=== PATIENT | female | born 1975 | race Caucasian/White ===

== ENCOUNTER 2018-08-29 18:27 | Emergency (ER) | payer MEDICARE, MEDICAID ==
[2018-08-29 18:44] VITALS: BP 136/83
[2018-08-29] MEDS ORDERED: HYDROmorphone 0.5 MG/0.5 ML Syringe IVPUSH ONE (19:04)
--- NOTE | 2018-08-29 19:09 | EDM.PDOC ---
ED HPI GENERAL MEDICAL PROBLEM - General Chief Complaint: ENT Problem Stated Complaint: SORE THROAT Time Seen by Provider: 08/29/18 18:50 Source of Information: Reports: Patient, Family History Limitations: Reports: No Limitations - History of Present Illness INITIAL COMMENTS - FREE TEXT/NARRATIVE: 42-year-old female has had malaise and sore throat for the past 5 days. Over the past 48 hours she is running low-grade fevers and has had increased pain on the right side with difficulty swallowing. No other cold symptoms, no nausea or vomiting. She is 10 weeks' gestation. She was evaluated at the clinic, rapid strep was positive, she was then sent over the emergency room to evaluate for possible peritonsillar abscess. 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 Denies: Weakness HEENT: Reports: Throat Pain. Denies: Ear Pain Respiratory: Denies: Shortness of Breath, Cough Cardiovascular: Denies: Chest Pain GI/Abdominal: Denies: Abdominal Pain, Nausea, Vomiting : Reports: No Symptoms Skin: Reports: No Symptoms Neurological: Denies: Headache Free Text/Narrative/Comment: 10 weeks gestation ED EXAM, ENT - Physical Exam Exam: See Below Exam Limited By: No Limitations General Appearance: Alert, No Apparent Distress (Looks uncomfortable but not distressed) Eye Exam: Bilateral Eye: Normal Inspection Mouth/Throat: Pharyngeal Erythema, Tonsillar Erythema, Tonsillar Exudates, Uvular Deviation (Slight deviation to the left due to peritonsillar swelling on the right side.) Head: Atraumatic Neck: No: Lymphadenopathy (R), Lymphadenopathy (L) Respiratory/Chest: No Respiratory Distress Skin: Warm, Dry Course - Vital Signs Last Recorded V/S: Last Vital Signs Temp 97.6 F 08/29/18 18:43 Pulse 99 08/29/18 18:43 Resp 16 08/29/18 18:43 BP 136/83 08/29/18 18:43 Pulse Ox 100 08/29/18 18:43 - Orders/Labs/Meds Labs: Laboratory Tests 08/29/18 08/29/18 Range/Units 19:04 19:04 WBC 15.4 H (4.5-11.0) K/uL RBC 4.64 (3.30-5.50) M/uL Hgb 13.1 D (12.0-15.0) g/dL Hct 40.9 (36.0-48.0) % MCV 88 (80-98) fL MCH 28 (27-31) pg MCHC 32 (32-36) % Plt Count 304 (150-400) K/uL Neut % (Auto) 81 H (36-66) % Lymph % (Auto) 9 L (24-44) % Yancey % (Auto) 10 H (2-6) % Eos % (Auto) 1 L (2-4) % Baso % (Auto) 0 (0-1) % Sodium 139 L (140-148) mmol/L Potassium 3.1 L (3.6-5.2) mmol/L Chloride 104 (100-108) mmol/L Carbon Dioxide 24 (21-32) mmol/L Anion Gap 14.1 H (5.0-14.0) mmol/L BUN 12 (7-18) mg/dL Creatinine 0.8 (0.6-1.0) mg/dL Est Cr Clr Drug Dosing 86.63 mL/min Estimated GFR (MDRD) > 60 (>60) Glucose 112 H (74-106) mg/dL Calcium 9.3 (8.5-10.1) mg/dL Meds: Medications Discontinued Medications Generic Name Dose Route Start Last Admin Trade Name Freq PRN Reason Stop Dose Admin Hydromorphone HCl 0.5 mg 08/29/18 19:04 08/29/18 19:35 Dilaudid IVPUSH 08/29/18 19:05 0.5 mg ONETIME ONE Administration Sodium Chloride 1,000 mls @ 1,000 mls/hr 08/29/18 19:15 08/29/18 19:35 Normal Saline IV 1,000 mls/hr ASDIRECTED OMKAR Administration Clindamycin Phosphate 600 mg/ 54 mls @ 100 mls/hr 08/29/18 19:53 08/29/18 20: 10 Sodium Chloride IV 08/29/18 20:25 100 mls/hr ONETIME ONE Administration Sodium Chloride 80 mls @ 3 mls/sec 08/29/18 20:00 Normal Saline IV ASDIRECTED OMKAR Iopamidol 100 ml 08/29/18 20:00 Isovue-300 (61%) IV . DIRECTED OMKAR Methylprednisolone Sodium Succinate 125 mg 08/29/18 20:27 08/29/18 20:33 Solu-Medrol IVPUSH 08/29/18 20:28 125 mg ONETIME ONE Administration Sodium Chloride 10 ml 08/29/18 19:59 Saline Flush FLUSH ASDIRECTED PRN Keep Vein Open - Re-Assessments/Exams Free Text/Narrative Re-Assessment/Exam: 08/29/18 19:08 An IV was started, patient will be bolused with 1 L of normal saline. She'll be given 0.5 mg of IV Dilaudid, BMP and CBC obtained followed by a CT scan with IV contrast of the cervical soft tissue. 08/29/18 19:55 White count returned 15,000, creatinine normal. 600 mg of IV clindamycin was ordered as well as a CT of soft tissue of the neck with IV contrast. 08/29/18 20:26 After discussion with radiology, there is no save way to shield from the CT scan and was advised not to CT if possible. She'll be given 125 mg of IV Solu-Medrol, followed by the clindamycin and then placed on oral clindamycin. 08/29/18 20:59 Patient will continue on clindamycin orally 300 mg 3 times a day, and recheck with Dr. Harkins on Monday. Departure - Departure Time of Disposition: 21:25 Disposition: Home, Self-Care 01 Condition: Good Clinical Impression: Strep pharyngitis - Discharge Information Instructions: Strep Throat, [id number] Referrals: Susannah Mendoza PA [Primary Care Provider] - Forms: ED Department Discharge Care Plan Goals: Take 2 pills of antibiotic 3 times a day for at least 7 days and up to 10 days if needed. Continue with ibuprofen as needed and stay hydrated. Consider rechecking with Dr. Harkins on Monday at the clinic follow-up.
[2018-08-29] MEDS ORDERED: Sodium Chloride 0.9% 1,000 ML IV SCH (19:15)
[2018-08-29] MEDS ORDERED: Sodium Chloride 0.9% 10 ML Syringe FLUSH PRN (19:59)
[2018-08-29] MEDS ORDERED: Sodium Chloride 0.9% 80 ML IV SCH (20:00)
[2018-08-29] MEDS ORDERED: Iopamidol 612 MG/ML 100 ML Bottle IV SCH (20:00)
[2018-08-29] MEDS ORDERED: methylPREDNISolone Sodium Succinate 125 MG/2 ML SDV IVPUSH ONE (20:27)
== END 2018-08-29 21:27 | disposition home or self-care (01) ==
LOC: JP.ED 18:27
DX: J02.0 Streptococcal pharyngitis (principal)
CPT/HCPCS: 36415; 80048; 85025; 96361; 96365; 96375; 99283; J1170; J2930; J3490; J7030; J7050

== ENCOUNTER 2021-03-18 21:25 | Inpatient (IN) | payer OTHER, MEDICARE, MEDICAID ==
[2021-03-18] MEDS ORDERED: Ondansetron 4 MG/2 ML SDV IVPUSH ONE (21:36)
[2021-03-18] MEDS ORDERED: Sodium Chloride 0.9% 10 ML Syringe FLUSH PRN ×2 (21:36→23:49)
[2021-03-18] MEDS ORDERED: Sodium Chloride 0.9% 1,000 ML IV SCH (21:45)
[2021-03-18] MEDS ORDERED: Enoxaparin 40 MG/0.4 ML Syringe SUBCUT SCH (23:45)
[2021-03-18] MEDS ORDERED: Iopamidol 755 Mg/ML 100 ML Bottle IV SCH (23:45)
[2021-03-18] MEDS ORDERED: Sodium Chloride 0.9% 100 ML IV SCH (23:45)
[2021-03-18] MEDS ORDERED: oxyCODONE 5 MG Tab PO PRN (23:49)
[2021-03-18] MEDS ORDERED: LORazepam 2 MG/ML SDV IV PRN (23:49)
[2021-03-18] MEDS ORDERED: Morphine 2 MG/ML SYRINGE IVPUSH PRN (23:49)
[2021-03-18] MEDS ORDERED: Sodium Chloride 0.9% 10 ML Syringe FLUSH ONE (23:49)
[2021-03-18] MEDS ORDERED: Docusate Sodium 100 MG Cap PO PRN (23:49)
[2021-03-18] MEDS ORDERED: REMDESIVIR 200 MG in Sodium Chloride 0.9% 250 ML IV ONE (23:59)
[2021-03-19] MEDS ORDERED: Dexamethasone 2 MG Tab PO SCH
[2021-03-19] MEDS ORDERED: Albuterol 8 GM Inhaler INH PRN (00:04)
--- NOTE | 2021-03-19 00:08 | PCM.HP.2 ---
H&P History of Present Illness - General Date of Service: 03/18/21 Admit Problem/Dx: Admission Diagnosis/Problem Admission Diagnosis/Problem Pneumonia due to infectious organism Source of Information: Patient, Provider, RN History Limitations: Reports: No Limitations - History of Present Illness Initial Comments - Free Text/Narative: chief complaint: shortness of breath - not feeling well This is a 45 year old female present to the ER with , reports has been sick for 10 days- body aches, fever, chills, cough, loss of appetite, nausea, vomiting, diarrhea. she was seen in [facility] ER on Mar 16 for same symptoms- was not tested for Covid- discharge to home with John. She came to ER today because her was monitoring her oxygen level and it was noted to be 80%. She has weakness, cough and shortness of breath. and Mrs. Parisi came to [facility] for re-evaluation of worsening symptoms. vitals signs upon arrival p 93 rr 14 shallow B/P 93/52 02 sat 88% room air. She was given one liter of normal saline for hypotension which improved B/P 105/59. she reports still weak and shortness of breath She had labs- which shows positive Covid-19 , dimer 800.94, wbc 2.9, hgb 13.1, hct 38.7, Na+ 135, K+3.7, cl 96, co2 13.7, bun 21, cr. 1.1, gfr 54, glucose 101, Lactic acid 3.4, Ca+ 8.1, Ferritin 549, Total bili 0.4, ast 43, alt 75, alk phos 89, LDH 181, crp 43.61, procalcitonin 1.13 total protein 6.4, albumin 2.4, globulin 0.6 chest x-rays with bilateral patchy infiltrates with left lung with lower half of lung involved. CT angio-chest pending at time of admission not vaccination for Covid-19 Onset of Symptoms: Reports: Gradual Duration of Symptoms: Reports: Day(s): (10 days with Covid-19 infection), Getting Worse Location: Reports: Generalized Quality: Reports: Ache Severity: Severe Improves with: Reports: None Worsens with: Reports: Movement Context: Reports: Sick Contact (one daughter with similar symptoms- but has recovered.), Other (Covid-19 infection) Associated Symptoms: Reports: Fever/Chills, Loss of Appetite, Malaise, Shortness of Breath, Weakness Generalized Pain Score (Numeric/FACES): 2 - Related Data Allergies/Adverse Reactions: Allergies Allergy/AdvReac Type Severity Reaction Status Date / Time No Known Allergies Allergy Verified 03/18/21 22:41 Home Medications: Home Meds Ondansetron [Zofran ODT] 4 mg PO Q6H PRN 03/18/21 [History] Past Medical History HEENT History: Reports: Impaired Vision, Other (See Below) 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 home is in [place], [place].) H&P Review of Systems - Review of Systems: Review Of Systems: See Below General: Reports: Fever, Chills, Malaise, Weakness, Fatigue, Diaphoresis, Decreased Appetite, Weight Loss HEENT: Reports: Other (legal blind) Pulmonary: Reports: Shortness of Breath, Pleuritic Chest Pain, Cough Cardiovascular: Reports: Dyspnea on Exertion Gastrointestinal: Reports: Diarrhea, Decreased Appetite, Nausea, Vomiting Genitourinary: Reports: No Symptoms Musculoskeletal: Reports: Muscle Pain Skin: Reports: Pallor, Rash (face and upper body) Psychiatric: Reports: No Symptoms Neurological: Reports: Weakness Hematologic/Lymphatic: Reports: No Symptoms Immunologic: Reports: No Symptoms Exam - Exam Exam: See Below - Vital Signs Vital Signs: Last Vital Signs Temp 97.6 F 03/18/21 22:00 Pulse 98 03/19/21 00:05 Resp 16 03/19/21 00:05 BP 105/59 L 03/19/21 00:05 Pulse Ox 92 L 03/19/21 00:05 Weight: 150 lb - Exam Quality Assessment: Supplemental Oxygen, DVT Prophylaxis General: Alert, Oriented, Cooperative, Other (neat and well groomed. very pale, weakness and fatigue noted. ) HEENT: Nares Patent Neck: Supple, Trachea Midline, Full Range of Motion Lungs: Clear to Auscultation, Decreased Breath Sounds (shallow breathing noted) Cardiovascular: Regular Rate, Regular Rhythm, Normal S1, Normal S2 GI/Abdominal Exam: Normal Bowel Sounds, Soft, Non-Tender (Female) Exam: Deferred Rectal (Female) Exam: Deferred Back Exam: Normal Inspection Extremities: Normal Inspection, Normal Range of Motion, Non-Tender, Normal Capillary Refill, Pallor Skin: Warm, Dry, Rash (blotchy red/pink rash noted to face, neck and upper chest) Neurological: Reflexes Equal Bilateral, Strength Equal Bilateral Neuro Extensive - Mental Status: Inattentive Psychiatric: Alert, Other (appears very tired. but answers questions.) - Patient Data Lab Results Last 24 hrs: Laboratory Results - last 24 hr 03/18/21 03/18/21 03/18/21 Range/Units 21:51 21:51 21:51 WBC 2.9 L (4.5-11.0) K/uL RBC 4.61 (3.30-5.50) M/uL Hgb 13.1 (12.0-15.0) g/dL Hct 38.7 (36.0-48.0) % MCV 84 (80-98) fL MCH 28 (27-31) pg MCHC 34 (32-36) % Plt Count 132 L (150-400) K/uL Add Manual Diff Yes Neutrophils % (Manual) 80 H (36-66) % Band Neutrophils % 10 (5-11) % Lymphocytes % (Manual) 9 L (24-44) % Monocytes % (Manual) 1 L (2-6) % D-Dimer, Quantitative 800.94 H (0.0-500.0) ng/mL Sodium 135 L (140-148) mmol/L Potassium 3.7 (3.6-5.2) mmol/L Chloride 96 L (100-108) mmol/L Carbon Dioxide 29 (21-32) mmol/L Anion Gap 13.7 (5.0-14.0) mmol/L BUN 21 H D (7-18) mg/dL Creatinine 1.1 H (0.6-1.0) mg/dL Est Cr Clr Drug Dosing 61.10 mL/min Estimated GFR (MDRD) 54 L (>60) Glucose 101 (74-106) mg/dL Lactic Acid (0.4-2.0) mmol/L Calcium 8.1 L (8.5-10.1) mg/dL Ferritin 549 H (8-388) ng/ml Total Bilirubin 0.4 (0.2-1.0) mg/dL AST 40 H (15-37) U/L ALT 72 (12-78) U/L Alkaline Phosphatase 89 (46-116) U/L Lactate Dehydrogenase 181 (82-234) U/L C-Reactive Protein 43.61 H (0.0-0.3) mg/dL Total Protein 6.4 (6.4-8.2) g/dL Albumin 2.4 L (3.4-5.0) g/dL Globulin 4.0 H (2.3-3.5) g/dL Albumin/Globulin Ratio 0.6 L (1.2-2.2) SARS-CoV-2 RNA (CIARA) (NEGATIVE) 03/18/21 03/18/21 Range/Units 21:51 22:05 WBC (4.5-11.0) K/uL RBC (3.30-5.50) M/uL Hgb (12.0-15.0) g/dL Hct (36.0-48.0) % MCV (80-98) fL MCH (27-31) pg MCHC (32-36) % Plt Count (150-400) K/uL Add Manual Diff Neutrophils % (Manual) (36-66) % Band Neutrophils % (5-11) % Lymphocytes % (Manual) (24-44) % Monocytes % (Manual) (2-6) % D-Dimer, Quantitative (0.0-500.0) ng/mL Sodium (140-148) mmol/L Potassium (3.6-5.2) mmol/L Chloride (100-108) mmol/L Carbon Dioxide (21-32) mmol/L Anion Gap (5.0-14.0) mmol/L BUN (7-18) mg/dL Creatinine (0.6-1.0) mg/dL Est Cr Clr Drug Dosing mL/min Estimated GFR (MDRD) (>60) Glucose (74-106) mg/dL Lactic Acid 3.4 H (0.4-2.0) mmol/L Calcium (8.5-10.1) mg/dL Ferritin (8-388) ng/ml Total Bilirubin (0.2-1.0) mg/dL AST (15-37) U/L ALT (12-78) U/L Alkaline Phosphatase (46-116) U/L Lactate Dehydrogenase (82-234) U/L C-Reactive Protein (0.0-0.3) mg/dL Total Protein (6.4-8.2) g/dL Albumin (3.4-5.0) g/dL Globulin (2.3-3.5) g/dL Albumin/Globulin Ratio (1.2-2.2) SARS-CoV-2 RNA (CIARA) Positive H (NEGATIVE) Result Diagrams: 03/18/21 21:51 03/18/21 21:51 Sepsis Event Note - Evaluation Sepsis Screening Result: No Definite Risk - Focused Exam Vital Signs: Vital Signs Temp Pulse Resp BP Pulse Ox 03/19/21 00:05 98 16 105/59 L 92 L 03/18/21 23:58 81 14 93 L 03/18/21 23:35 93 88 L 03/18/21 23:04 91 16 93/61 91 L 03/18/21 22:21 93 14 93/52 L 95 03/18/21 22:00 97.6 F 89 16 85/50 L 93 L - Problem List (1) Pneumonia due to 2019 novel coronavirus SNOMED Code(s): 134433946499187774 ICD Code: U07.1 - COVID-19; J12.82 - PNEUMONIA DUE TO CORONAVIRUS DISEASE 2019 Status: Acute Priority: High Current Visit: Yes (2) Legal blindness SNOMED Code(s): 84892443 ICD Code: H54.8 - LEGAL BLINDNESS, DEFINED IN [place] Status: Acute Priority: High Current Visit: Yes Problem List Initiated/Reviewed/Updated: Yes Orders Last 24hrs: Active Orders 24 hr Category Date Time Status Patient Status Manage Transfer [TRANSFER] Routine ADT 03/18/21 23:43 Active Bedrest Bathroom Privileges [RC] ASDIRECTED Care 03/18/21 23:49 Active Cardiac Monitoring [RC] CONTINUOUS Care 03/18/21 23:50 Active Intake and Output [RC] QSHIFT Care 03/18/21 23:50 Active Notify Provider Vital Signs [RC] ASDIRECTED Care 03/18/21 23:51 Active Nurse Communication: Isolation [RC] ASDIRECTED Care 03/19/21 00:01 Active Oxygen Therapy [RC] PRN Care 03/18/21 23:50 Active Pulse Oximetry [RC] CONTINUOUS Care 03/18/21 23:51 Active RT Post Treatment Assessment [RC] Click to Edit Care 03/19/21 00:05 Active VTE/DVT Education [RC] Per Unit Routine Care 03/18/21 23:50 Active Vital Signs [RC] Q4H Care 03/18/21 23:50 Active Regular Diet [DIET] Diet 03/18/21 Breakfast Active Ang Chest [CT] Stat Exams 03/18/21 23:41 Ordered Chest 1V Frontal [CR] Stat Exams 03/18/21 21:36 Taken BASIC METABOLIC PANEL,BMP [CHEM] AM Lab 03/19/21 05:11 Ordered C-REACTIVE PROTEIN [CHEM] AM Lab 03/19/21 05:11 Ordered CBC WITH AUTO DIFF [HEME] AM Lab 03/19/21 05:11 Ordered CULTURE BLOOD [BC] Urgent Lab 03/18/21 23:56 Ordered CULTURE BLOOD [BC] Urgent Lab 03/18/21 23:56 Ordered HEPATIC FUNCTION PANEL,HFP [CHEM] DAILY Lab 03/20/21 00:15 Ordered HEPATIC FUNCTION PANEL,HFP [CHEM] DAILY Lab 03/21/21 00:15 Ordered HEPATIC FUNCTION PANEL,HFP [CHEM] DAILY Lab 03/22/21 00:15 Ordered HEPATIC FUNCTION PANEL,HFP [CHEM] DAILY Lab 03/23/21 00:15 Ordered HEPATIC FUNCTION PANEL,HFP [CHEM] Stat Lab 03/19/21 00:01 Ordered INR,PT,PROTHROMBIN TIME [COAG] AM Lab 03/19/21 05:11 Ordered LACTIC ACID [CHEM] AM Lab 03/19/21 05:11 Ordered MAGNESIUM [CHEM] AM Lab 03/19/21 05:11 Ordered PROCALCITONIN [CHEM] Stat Lab 03/18/21 21:48 Stop Req PROCALCITONIN [CHEM] Stat Lab 03/19/21 05:10 Ordered UA W/MICROSCOPIC [URIN] Urgent Lab 03/18/21 23:49 Ordered Acetaminophen [TylenoL] Med 03/18/21 23:49 Active 650 mg PO Q4H PRN Albuterol [Ventolin HFA] Med 03/19/21 00:04 Ordered 2 gm INH Q2H PRN Albuterol/Ipratropium [Combivent Respimat] Med 03/19/21 06:00 Ordered 1 gm INH QID Docusate Sodium [Colace] Med 03/18/21 23:49 Active 100 mg PO BID PRN Enoxaparin [Lovenox] Med 03/18/21 23:45 Active 40 mg SUBCUT Q12H Iopamidol [Isovue-370 (76%)] Med 03/18/21 23:45 Active 100 ml IV . DIRECTED LORazepam [Ativan] Med 03/18/21 23:49 Active 1 mg IV Q6H PRN Morphine Med 03/18/21 23:49 Ordered 2 mg IVPUSH Q2H PRN Ondansetron [Zofran ODT] Med 03/18/21 23:49 Ordered 4 mg PO Q6H PRN Remdesivir 200 mg Med 03/18/21 23:59 Ordered Sodium Chloride 0.9% [Normal Saline] 250 ml IV ONETIME Sodium Chloride 0.9% [Normal Saline] 1,000 ml Med 03/18/21 21:45 Active IV ASDIRECTED Sodium Chloride 0.9% [Normal Saline] 100 ml Med 03/18/21 23:45 Active IV ASDIRECTED Sodium Chloride 0.9% [Saline Flush] Med 03/18/21 21:36 Active 10 ml FLUSH ASDIRECTED PRN Sodium Chloride 0.9% [Saline Flush] Med 03/18/21 23:49 Ordered 10 ml FLUSH ASDIRECTED PRN dexAMETHasone Med 03/19/21 00:00 Active 6 mg PO DAILY oxyCODONE Med 03/18/21 23:49 Ordered 5 mg PO Q4H PRN Blood Culture x2 Reflex Set [OM.PC] Stat Oth 03/18/21 23:55 Ordered Isolation [COMM] Routine Oth 03/19/21 00:01 Ordered Saline Lock Insert [OM.PC] Routine Oth 03/18/21 21:36 Ordered Saline Lock Insert [OM.PC] Routine Oth 03/18/21 23:49 Ordered Resuscitation Status Routine Resus Stat 03/18/21 23:49 Ordered Medication Orders Acetaminophen (Acetaminophen 325 Mg Tab) 650 mg PO Q4H PRN PRN Reason: Pain (Mild 1-3)/fever Albuterol (Albuterol 8 Gm Inhaler) 2 gm INH Q2H PRN PRN Reason: Cough Albuterol/Ipratropium (Albuterol/Ipratropium 4 Gm Inhalation [place]) 1 gm INH QID [facility] Dexamethasone (Dexamethasone 2 Mg Tab) 6 mg PO DAILY [facility] Docusate Sodium (Docusate Sodium 100 Mg Cap) 100 mg PO BID PRN PRN Reason: Constipation Enoxaparin Sodium (Enoxaparin 40 Mg/0.4 Ml Syringe) 40 mg SUBCUT Q12H [facility] Sodium Chloride (Normal Saline) 1,000 mls @ 999 mls/hr IV ASDIRECTED [facility] Last Admin: 03/18/21 22:15 Dose: 999 mls/hr Documented by: LAYNE Sodium Chloride (Normal Saline) 100 mls @ 3 mls/sec IV ASDIRECTED [facility] Remdesivir 200 mg/ Sodium (Chloride) 250 mls @ 250 mls/hr IV ONETIME ONE Stop: 03/19/21 00:00 Iopamidol (Iopamidol 755 Mg/Ml 100 Ml Bottle) 100 ml IV . DIRECTED [facility] Lorazepam (Lorazepam 2 Mg/Ml Sdv) 1 mg IV Q6H PRN PRN Reason: Nausea/Vomiting Morphine Sulfate (Morphine 2 Mg/Ml Syringe) 2 mg IVPUSH Q2H PRN PRN Reason: Pain (severe 7-10) Ondansetron HCl (Ondansetron 4 Mg Tab.Dis) 4 mg PO Q6H PRN PRN Reason: Nausea able to take PO Oxycodone HCl (Oxycodone 5 Mg Tab) 5 mg PO Q4H PRN PRN Reason: Pain (moderate 4-6) Sodium Chloride (Sodium Chloride 0.9% 10 Ml Syringe) 10 ml FLUSH ASDIRECTED PRN PRN Reason: Keep Vein Open Last Admin: 03/18/21 22:12 Dose: 10 ml Documented by: LAYNE Sodium Chloride (Sodium Chloride 0.9% 10 Ml Syringe) 10 ml FLUSH ASDIRECTED PRN PRN Reason: Keep Vein Open Assessment/Plan Comment:: ASSESSMENT AND PLAN : pneumonia due to Covid 19 This is a 45 year old female present to the ER with , reports has been sick for 10 days- body aches, fever, chills, cough, loss of appetite, nausea, vomiting, diarrhea. she was seen in [facility] ER on Mar 16 for same symptoms- was not tested for Covid- discharge to home with John. She has no chronic health conditions. has 11 children ages 2 yrs to 21 yrs., one daughter is recovering from similar symptoms. She came to ER today because her was monitoring her oxygen level at home and it was noted to be 80%. She has weakness, cough and shortness of breath. vitals signs upon arrival p 93 rr 14 shallow B/P 93/52 02 sat 88% room air. She was given one liter of normal saline for hypotension which improved B/P 105/59. she reports still weak and shortness of breath She had labs- which shows positive Covid-19 , dimer 800.94, wbc 2.9, hgb 13.1, hct 38.7, Na+ 135, K+3.7, cl 96, co2 13.7, bun 21, cr. 1.1, gfr 54, glucose 101, Lactic acid 3.4, Ca+ 8.1, Ferritin 549, Total bili 0.4, ast 43, alt 75, alk phos 89, LDH 181, crp 43.61, procalcitonin 1.13 total protein 6.4, albumin 2.4, globulin 0.6 chest x-rays with bilateral patchy infiltrates with left lung with lower half of lung involved. CT angio-chest pending at time of admission PLAN- to admit to hospital for further care and treatment. COVID-19 pneumonia-complicated by hypoxia. She has not been vaccinated. Tested positive on March 18 at [place] but has been sick for 10 days. Elevation of D-dimer 800.94, CT chest angio pending at time of admission -IV Remdesivir 200 mg - start today -PO Dexamethasone 6 mg daily - start today -Supplement oxygen as needed -Symptomatic management of cough -albuterol inhaler 2 puffs every 2 hours as needed for cough -albuterol - atrovent inhaler 1 puff 4 times a day scheduled -Goal of negative fluid balance each day -Isolation precautions -am labs CBC, BMP, LACTIC ACID, PROCALCITONIN, CRP, UA Legal Blindness -orient to room -at risk for falls, tripping or slips -call light Maintenance issues - -DVT prophylaxis-enoxaparin 40 mg subcut bid -GI prophylaxis-not indicated -Nutrition-regular -Cardona catheter-not indicated CODE STATUS: FULL Admission status: Admit to 2ND Floor Med-Surg Admission justification. This patient will be admitted for inpatient services and is medically appropriate meeting medical necessity for inpatient admission as outlined in my documentation. I reasonably expect the patient will require inpatient services that span. Time over 2 midnights. I reasonably expect this patient to be discharged or transferred within 96 hours after admission to the critical [facility]. Disposition: home with family Primary care provider: Dr. Garcia, [facility] Hospitalist: Dr. Goel - Mortality Measure Prognosis:: Good - Mortality Measure Prognosis:: Good
[2021-03-19] MEDS: Ondansetron 4 MG Tab.DIS PO PRN ×2 (02:06→08:10)
--- NOTE | 2021-03-19 02:44 | EDM.PDOC ---
ED HPI GENERAL MEDICAL PROBLEM - General Chief Complaint: Respiratory Problem Stated Complaint: FEVER, LOW O2, SOB Time Seen by Provider: 03/18/21 21:34 Source of Information: Reports: Patient, Provider, RN History Limitations: Reports: No Limitations - History of Present Illness INITIAL COMMENTS - FREE TEXT/NARRATIVE: Is a 45-year-old female presenting to the ED for evaluation of increasing shortness of breath, restlessness, headache, body aches, diminished appetite, and generalized weakness. The patient and her daughter were diagnosed 10 days ago with COVID-19. The patient had been doing fairly well until 3 days ago when she took a turn for the worst and since then has been steadily declining with increasing difficulty breathing and hypoxia. The patient presents with fever and hypotension with a systolic pressure of 85. She is rolling around on the cot in obvious discomfort. The patient has not been vaccinated. Onset: Gradual Duration: Day(s): (10 days with Covid-19 infection), Getting Worse Location: Reports: Generalized Quality: Reports: Ache Severity: Severe Improves with: Reports: None Worsens with: Reports: Movement Associated Symptoms: Reports: Fever/Chills, Loss of Appetite, Malaise, Shortness of Breath, Weakness Generalized Pain Score (Numeric/FACES): 2 - Related Data Allergies Allergy/AdvReac Type Severity Reaction Status Date / Time No Known Allergies Allergy Verified 03/18/21 22:41 Home Meds: Home Meds Ondansetron [Zofran ODT] 4 mg PO Q6H PRN 03/18/21 [History] Past Medical History HEENT History: Reports: Impaired Vision, Other (See Below) Other HEENT History: Retinitis pigmintosa (RP) [employer] History: Reports: Social & Family History - Tobacco Use Tobacco Use Status *Q: Never Tobacco User Second Hand Smoke Exposure: No - Caffeine Use Caffeine Use: Reports: Coffee - Recreational Drug Use Recreational Drug Use: No - Living Situation & Occupation Living situation: Reports: , with Family (lives with Vikram, 11 children ages 2 years to 21 years. home is in [place], [place].) ED ROS GENERAL - Review of Systems Review Of Systems: See Below Constitutional: Reports: Fever, Chills, Malaise, Weakness, Fatigue, Decreased Appetite HEENT: Reports: Rhinitis, Sinus Problem Respiratory: Reports: Shortness of Breath, Cough Cardiovascular: Reports: No Symptoms Endocrine: Reports: No Symptoms GI/Abdominal: Reports: Abdominal Pain, Anorexia, Decreased Appetite, Nausea : Reports: No Symptoms Musculoskeletal: Reports: Muscle Pain Skin: Reports: Rash Neurological: Reports: Dizziness, Headache Psychiatric: Reports: No Symptoms Hematologic/Lymphatic: Reports: No Symptoms Immunologic: Reports: No Symptoms ED EXAM, GENERAL - Physical Exam Exam: See Below Exam Limited By: No Limitations General Appearance: Alert, Anxious, Moderate Distress Eye Exam: Bilateral Eye: EOMI, PERRL Nose: Nasal Drainage, Clear Rhinorrhea Throat/Mouth: Normal Inspection, Normal Oropharynx, Normal Voice, No Airway Compromise Head: Atraumatic, Normocephalic Neck: Normal Inspection, Supple, Non-Tender, Full Range of Motion. No: Lymphadenopathy (R), Lymphadenopathy (L) Respiratory/Chest: Decreased Breath Sounds (Minutes breath sounds on the left), Other (Mild tachypnea) Cardiovascular: Normal Peripheral Pulses, Regular Rate, Rhythm, No Murmur Peripheral Pulses: 2+: Radial (L), Radial (R) GI/Abdominal: Normal Bowel Sounds, Soft, Non-Tender Back Exam: Normal Inspection Extremities: Normal Inspection, Normal Range of Motion, Non-Tender, Normal Capillary Refill, Pallor Neurological: Alert, Oriented, Normal Cognition, No Motor/Sensory Deficits Psychiatric: Anxious Skin Exam: Rash (Fine macular rash) Lymphatic: No Adenopathy Course - Vital Signs Last Recorded V/S: Last Vital Signs Temp 36.4 C 03/18/21 22:00 Pulse 95 03/19/21 02:06 Resp 20 03/19/21 02:06 BP 95/59 L 03/19/21 02:06 Pulse Ox 91 L 03/19/21 02:06 - Orders/Labs/Meds Orders: Active Orders 24 hr Category Date Time Status Ang Chest [CT] Stat Exams 03/18/21 23:41 Taken Chest 1V Frontal [CR] Stat Exams 03/18/21 21:36 Taken Sodium Chloride 0.9% [Normal Saline] 1,000 ml Med 03/18/21 21:45 Active IV ASDIRECTED Sodium Chloride 0.9% [Saline Flush] Med 03/18/21 21:36 Active 10 ml FLUSH ASDIRECTED PRN Saline Lock Insert [OM.PC] Routine Oth 03/18/21 21:36 Ordered Medication Orders Acetaminophen (Acetaminophen 325 Mg Tab) 650 mg PO Q4H PRN PRN Reason: Pain (Mild 1-3)/fever Albuterol (Albuterol 8 Gm Inhaler) 2 gm INH Q2H PRN PRN Reason: Cough Albuterol/Ipratropium (Albuterol/Ipratropium 4 Gm Inhalation [place]) 1 gm INH QID ON LICENSE OF [facility] Dexamethasone (Dexamethasone 2 Mg Tab) 6 mg PO DAILY ON LICENSE OF [facility] Last Admin: 03/19/21 01:59 Dose: 6 mg Documented by: LAYNE Docusate Sodium (Docusate Sodium 100 Mg Cap) 100 mg PO BID PRN PRN Reason: Constipation Enoxaparin Sodium (Enoxaparin 40 Mg/0.4 Ml Syringe) 40 mg SUBCUT Q12H ON LICENSE OF [facility] Sodium Chloride (Normal Saline) 1,000 mls @ 999 mls/hr IV ASDIRECTED ON LICENSE OF [facility] Last Admin: 03/18/21 22:15 Dose: 999 mls/hr Documented by: LAYNE Sodium Chloride (Normal Saline) 100 mls @ 3 mls/sec IV ASDIRECTED ON LICENSE OF [facility] Last Admin: 03/19/21 03:01 Dose: 3 mls/sec Documented by: BI Vancomycin HCl 1.5 gm/ Sodium (Chloride) 250 mls @ 150 mls/hr IV Q12H OMKAR Ceftriaxone Sodium 2 gm/ (Sodium Chloride) 50 mls @ 100 mls/hr IV Q24H OMKAR Iopamidol (Iopamidol 755 Mg/Ml 100 Ml Bottle) 100 ml IV . DIRECTED ON LICENSE OF [facility] Last Admin: 03/19/21 03:00 Dose: 100 ml Documented by: BI Lorazepam (Lorazepam 2 Mg/Ml Sdv) 1 mg IV Q6H PRN PRN Reason: Nausea/Vomiting Morphine Sulfate (Morphine 2 Mg/Ml Syringe) 2 mg IVPUSH Q2H PRN PRN Reason: Pain (severe 7-10) Ondansetron HCl (Ondansetron 4 Mg Tab.Dis) 4 mg PO Q6H PRN PRN Reason: Nausea able to take PO Last Admin: 03/19/21 02:06 Dose: 4 mg Documented by: LAYNE Oxycodone HCl (Oxycodone 5 Mg Tab) 5 mg PO Q4H PRN PRN Reason: Pain (moderate 4-6) Sodium Chloride (Sodium Chloride 0.9% 10 Ml Syringe) 10 ml FLUSH ASDIRECTED PRN PRN Reason: Keep Vein Open Last Admin: 03/18/21 22:12 Dose: 10 ml Documented by: LAYNE Sodium Chloride (Sodium Chloride 0.9% 10 Ml Syringe) 10 ml FLUSH ASDIRECTED PRN PRN Reason: Keep Vein Open Labs: Laboratory Tests 03/18/21 03/18/21 03/18/21 Range/Units 21:48 21:48 21:51 WBC 2.9 L (4.5-11.0) K/uL RBC 4.61 (3.30-5.50) M/uL Hgb 13.1 (12.0-15.0) g/dL Hct 38.7 (36.0-48.0) % MCV 84 (80-98) fL MCH 28 (27-31) pg MCHC 34 (32-36) % Plt Count 132 L (150-400) K/uL Add Manual Diff Yes Neutrophils % (Manual) 80 H (36-66) % Band Neutrophils % 10 (5-11) % Lymphocytes % (Manual) 9 L (24-44) % Monocytes % (Manual) 1 L (2-6) % D-Dimer, Quantitative (0.0-500.0) ng/mL Sodium (140-148) mmol/L Potassium (3.6-5.2) mmol/L Chloride (100-108) mmol/L Carbon Dioxide (21-32) mmol/L Anion Gap (5.0-14.0) mmol/L BUN (7-18) mg/dL Creatinine (0.6-1.0) mg/dL Est Cr Clr Drug Dosing mL/min Estimated GFR (MDRD) (>60) Glucose (74-106) mg/dL Lactic Acid (0.4-2.0) mmol/L Calcium (8.5-10.1) mg/dL Ferritin (8-388) ng/ml Total Bilirubin 0.4 (0.2-1.0) mg/dL Direct Bilirubin 0.18 (0.0-0.2) mg/dL Indirect Bilirubin 0.22 AST 43 H (15-37) U/L ALT 75 (12-78) U/L Alkaline Phosphatase 89 (46-116) U/L Lactate Dehydrogenase (82-234) U/L C-Reactive Protein (0.0-0.3) mg/dL Total Protein 6.4 (6.4-8.2) g/dL Albumin 2.4 L (3.4-5.0) g/dL Globulin 4.0 H (2.3-3.5) g/dL Albumin/Globulin Ratio 0.6 L (1.2-2.2) Procalcitonin 1.13 ng/mL SARS-CoV-2 RNA (CIARA) (NEGATIVE) 03/18/21 03/18/21 03/18/21 Range/Units 21:51 21:51 21:51 WBC (4.5-11.0) K/uL RBC (3.30-5.50) M/uL Hgb (12.0-15.0) g/dL Hct (36.0-48.0) % MCV (80-98) fL MCH (27-31) pg MCHC (32-36) % Plt Count (150-400) K/uL Add Manual Diff Neutrophils % (Manual) (36-66) % Band Neutrophils % (5-11) % Lymphocytes % (Manual) (24-44) % Monocytes % (Manual) (2-6) % D-Dimer, Quantitative 800.94 H (0.0-500.0) ng/mL Sodium 135 L (140-148) mmol/L Potassium 3.7 (3.6-5.2) mmol/L Chloride 96 L (100-108) mmol/L Carbon Dioxide 29 (21-32) mmol/L Anion Gap 13.7 (5.0-14.0) mmol/L BUN 21 H D (7-18) mg/dL Creatinine 1.1 H (0.6-1.0) mg/dL Est Cr Clr Drug Dosing 61.10 mL/min Estimated GFR (MDRD) 54 L (>60) Glucose 101 (74-106) mg/dL Lactic Acid 3.4 H (0.4-2.0) mmol/L Calcium 8.1 L (8.5-10.1) mg/dL Ferritin 549 H (8-388) ng/ml Total Bilirubin 0.4 (0.2-1.0) mg/dL Direct Bilirubin (0.0-0.2) mg/dL Indirect Bilirubin AST 40 H (15-37) U/L ALT 72 (12-78) U/L Alkaline Phosphatase 89 (46-116) U/L Lactate Dehydrogenase 181 (82-234) U/L C-Reactive Protein 43.61 H (0.0-0.3) mg/dL Total Protein 6.4 (6.4-8.2) g/dL Albumin 2.4 L (3.4-5.0) g/dL Globulin 4.0 H (2.3-3.5) g/dL Albumin/Globulin Ratio 0.6 L (1.2-2.2) Procalcitonin ng/mL SARS-CoV-2 RNA (CIARA) (NEGATIVE) 03/18/21 Range/Units 22:05 WBC (4.5-11.0) K/uL RBC (3.30-5.50) M/uL Hgb (12.0-15.0) g/dL Hct (36.0-48.0) % MCV (80-98) fL MCH (27-31) pg MCHC (32-36) % Plt Count (150-400) K/uL Add Manual Diff Neutrophils % (Manual) (36-66) % Band Neutrophils % (5-11) % Lymphocytes % (Manual) (24-44) % Monocytes % (Manual) (2-6) % D-Dimer, Quantitative (0.0-500.0) ng/mL Sodium (140-148) mmol/L Potassium (3.6-5.2) mmol/L Chloride (100-108) mmol/L Carbon Dioxide (21-32) mmol/L Anion Gap (5.0-14.0) mmol/L BUN (7-18) mg/dL Creatinine (0.6-1.0) mg/dL Est Cr Clr Drug Dosing mL/min Estimated GFR (MDRD) (>60) Glucose (74-106) mg/dL Lactic Acid (0.4-2.0) mmol/L Calcium (8.5-10.1) mg/dL Ferritin (8-388) ng/ml Total Bilirubin (0.2-1.0) mg/dL Direct Bilirubin (0.0-0.2) mg/dL Indirect Bilirubin AST (15-37) U/L ALT (12-78) U/L Alkaline Phosphatase (46-116) U/L Lactate Dehydrogenase (82-234) U/L C-Reactive Protein (0.0-0.3) mg/dL Total Protein (6.4-8.2) g/dL Albumin (3.4-5.0) g/dL Globulin (2.3-3.5) g/dL Albumin/Globulin Ratio (1.2-2.2) Procalcitonin ng/mL SARS-CoV-2 RNA (CIARA) Positive H (NEGATIVE) Meds: Medications Generic Name Dose Route Start Last Admin Trade Name Freq PRN Reason Stop Dose Admin Acetaminophen 650 mg 03/18/21 23:49 Acetaminophen 325 Mg Tab PO Q4H PRN Pain (Mild 1-3)/fever Albuterol 2 gm 03/19/21 00:04 Albuterol 8 Gm Inhaler INH Q2H PRN Cough Albuterol/Ipratropium 1 gm 03/19/21 06:00 Albuterol/Ipratropium 4 Gm Inhalation [place] INH QID OMKAR Dexamethasone 6 mg 03/19/21 00:00 03/19/21 01:59 Dexamethasone 2 Mg Tab PO 6 mg DAILY OMKAR Administration Docusate Sodium 100 mg 03/18/21 23:49 Docusate Sodium 100 Mg Cap PO BID PRN Constipation Enoxaparin Sodium 40 mg 03/18/21 23:45 Enoxaparin 40 Mg/0.4 Ml Syringe SUBCUT Q12H OMKAR Sodium Chloride 1,000 mls @ 999 mls/hr 03/18/21 21:45 03/18/21 22:15 Normal Saline IV 999 mls/hr ASDIRECTED OMKAR Administration Sodium Chloride 100 mls @ 3 mls/sec 03/18/21 23:45 03/19/21 03:01 Normal Saline IV 3 mls/sec ASDIRECTED OMKAR Administration Vancomycin HCl 1.5 gm/ Sodium 250 mls @ 150 mls/hr 03/19/21 03:00 Chloride IV Q12H OMKAR Ceftriaxone Sodium 2 gm/ 50 mls @ 100 mls/hr 03/19/21 03:00 Sodium Chloride IV Q24H OMKAR Iopamidol 100 ml 03/18/21 23:45 03/19/21 03:00 Iopamidol 755 Mg/Ml 100 Ml Bottle IV 100 ml . DIRECTED OMKAR Administration Lorazepam 1 mg 03/18/21 23:49 Lorazepam 2 Mg/Ml Sdv IV Q6H PRN Nausea/Vomiting Morphine Sulfate 2 mg 03/18/21 23:49 Morphine 2 Mg/Ml Syringe IVPUSH Q2H PRN Pain (severe 7-10) Ondansetron HCl 4 mg 03/18/21 23:49 03/19/21 02:06 Ondansetron 4 Mg Tab.Dis PO 4 mg Q6H PRN Administration Nausea able to take PO Oxycodone HCl 5 mg 03/18/21 23:49 Oxycodone 5 Mg Tab PO Q4H PRN Pain (moderate 4-6) Sodium Chloride 10 ml 03/18/21 21:36 03/18/21 22:12 Sodium Chloride 0.9% 10 Ml Syringe FLUSH 10 ml ASDIRECTED PRN Administration Keep Vein Open Sodium Chloride 10 ml 03/18/21 23:49 Sodium Chloride 0.9% 10 Ml Syringe FLUSH ASDIRECTED PRN Keep Vein Open Discontinued Medications Generic Name Dose Route Start Last Admin Trade Name Freq PRN Reason Stop Dose Admin Remdesivir 200 mg/ Sodium 250 mls @ 250 mls/hr 03/18/21 23:59 03/19/21 02:02 Chloride IV 03/19/21 00:00 250 mls/hr ONETIME ONE Administration Ondansetron HCl 4 mg 03/18/21 21:36 03/18/21 22:12 Ondansetron 4 Mg/2 Ml Sdv IVPUSH 03/18/21 21:37 4 mg ONETIME ONE Administration Sodium Chloride 10 ml 03/18/21 23:49 03/19/21 03:01 Sodium Chloride 0.9% 10 Ml Syringe FLUSH 03/18/21 23:50 10 ml ONETIME ONE Administration - Radiology Interpretation Free Text/Narrative:: I reviewed the chest one-view portable showing significant infiltrates in the left lower two thirds of the lung. The patient is significantly hypoxic and has a elevation of her D-dimer so we will proceed with a CT angiogram of the chest to better evaluate the anatomy. I reviewed the images of the CT chest angiogram as well as the report. The report is as follows: Impression: 1. No evidence of pulmonary embolus. 2. Trace left pleural effusion with extensive areas of consolidation within the left lung as well as more patchy consolidation within the right lung. With a history of COVID, this can represent COVID pneumonia although given the degree of asymmetric consolidation in the left lung, superimposed bacterial pneumonia should also be considered. Dictated by Casey Barr MD @ 03/19/2021 3:42:11 AM - Re-Assessments/Exams Free Text/Narrative Re-Assessment/Exam: 03/19/21 00:44 I reviewed the patient's labs showing a leukocyte count of 2.9, hemoglobin of 13.3 with a hematocrit of 38.7 and a platelet count of 132,000. The comprehensive metabolic panel shows sodium 135, potassium 3.7, chloride of 96, bicarbonate of 29, BUN of 21 with a creatinine of 1.1 and a glucose of 101. GFR is calculated at 54. AST and ALT are normal. Alkaline phosphatase is normal. D-dimer is elevated at 800. Lactic acid is 3.4, LDH is 181, C-reactive protein is 43.6, ferritin is 549 and procalcitonin is 1.13. We proceeded with a CT angiogram of the chest which demonstrated consolidation worrisome for superimposed pneumonia. We will initiate antibiotics with Rocephin 2 g IV every 24 hours and vancomycin 1500 mg IV every 24 hours. Is no evidence on the angiogram of acute pulmonary embolism. I discussed the case with Dr. Goel who believes the patient can be hospitalized on the floor. Ira Galvez CNP will admit the patient to the floor. Departure - Departure Time of Disposition: 01:45 Disposition: Admitted As Inpatient 67 Clinical Impression: COVID-19, Hypoxia, Pneumonia due to 2019 novel coronavirus Left lower lobe pneumonia Qualifiers: Pneumonia type: due to unspecified organism Qualified Code(s): J18.9 - Pneumonia, unspecified organism - Discharge Information Sepsis Event Note (ED) - Evaluation Sepsis Screening Result: No Definite Risk - Focused Exam Vital Signs: Vital Signs Temp Pulse Resp BP Pulse Ox 03/18/21 23:35 93 88 L 03/18/21 23:04 91 16 93/61 91 L 03/18/21 22:21 93 14 93/52 L 95 03/18/21 22:00 36.4 C 89 16 85/50 L 93 L - Problem List & Annotations (1) Pneumonia due to 2019 novel coronavirus SNOMED Code(s): 556167283631658032 Code(s): U07.1 - COVID-19; J12.82 - PNEUMONIA DUE TO CORONAVIRUS DISEASE 2019 Status: Acute Priority: High Current Visit: Yes (2) COVID-19 SNOMED Code(s): 507793290 Code(s): U07.1 - COVID-19 Status: Acute Priority: High Current Visit: Yes (3) Hypoxia SNOMED Code(s): 275096135 Code(s): R09.02 - HYPOXEMIA Status: Acute Priority: High Current Visit: Yes (4) Left lower lobe pneumonia SNOMED Code(s): 191585671 Code(s): J18.9 - PNEUMONIA, UNSPECIFIED ORGANISM Status: Acute Priority: High Current Visit: Yes Qualifiers: Pneumonia type: due to unspecified organism Qualified Code(s): J18.9 - Pneumonia, unspecified organism - Problem List Review Problem List Initiated/Reviewed/Updated: Yes - My Orders Last 24 Hours: My Active Orders 03/18/21 21:36 Chest 1V Frontal [CR] Stat Sodium Chloride 0.9% [Saline Flush] 10 ml FLUSH ASDIRECTED PRN Saline Lock Insert [OM.PC] Routine 03/18/21 21:45 Sodium Chloride 0.9% [Normal Saline] 1,000 ml IV ASDIRECTED 03/18/21 23:41 Ang Chest [CT] Stat - Assessment/Plan Last 24 Hours: My Active Orders 03/18/21 21:36 Chest 1V Frontal [CR] Stat Sodium Chloride 0.9% [Saline Flush] 10 ml FLUSH ASDIRECTED PRN Saline Lock Insert [OM.PC] Routine 03/18/21 21:45 Sodium Chloride 0.9% [Normal Saline] 1,000 ml IV ASDIRECTED 03/18/21 23:41 Ang Chest [CT] Stat
[2021-03-19] MEDS ORDERED: Melatonin 3 MG Tab PO PRN (03:14)
[2021-03-19] MEDS: cefTRIAXone 2 GM in Sodium Chloride 0.9% 50 ML IV SCH (03:30)
--- NOTE | 2021-03-19 03:43 | CRLCT ---
For Patients: As a result of the 21st Century Cures Act, medical imaging exams and procedure reports are released immediately into your electronic medical record. You may view this report before your referring provider. If you have questions, please contact your health care provider. CLINICAL INFORMATION: 45-year-old with history of COVID-19 pneumonia and increased airspace opacities on chest radiograph. TECHNIQUE: Arterial phase CT angiogram of the chest was obtained. 3D and/or MIP angiographic reconstructions were performed on a separate independent workstation with concurrent supervision of the image post processing in order to further delineate the angiographic anatomy for accurate interpretation. Contrast: 59 mL of Isovue 370 intravenous contrast was injected uneventfully prior to image acquisition. Radiation Dose Estimate (Total Exam DLP): 494 mGy-cm. COMPARISON: Chest radiograph 03/18/2021. FINDINGS: CT Angiography Findings: Thoracic Aorta: Normal in course and caliber. No aneurysm or dissection. Great Vessels: Patent. Pulmonary arterial tree: Main pulmonary artery normal in caliber. No filling defects to suggest pulmonary embolism. Visceral Findings: Chest: Thyroid: Unremarkable Lungs: Extensive consolidative opacities with surrounding patchy ground-glass airspace opacities predominantly in the left lung as well as within the right middle and lower lobes most consistent with a multifocal pneumonia. These findings can be consistent with known COVID-19 pneumonia however concurrent/superimposed bacterial pneumonia cannot be excluded. Heart/Pericardium: Unremarkable. Lymph Nodes: No significant axillary, mediastinal, or hilar lymphadenopathy. Upper abdomen : No acute pathology. Musculoskeletal: No focal lytic or blastic lesions in the visualized osseous structures. IMPRESSION: 1. No evidence for pulmonary embolism. 2. Extensive consolidative opacities predominantly in the left lung and to a lesser degree in the right middle and lower lobes most consistent with multifocal pneumonia. These findings can be consistent with known COVID-19 pneumonia however concurrent/superimposed bacterial pneumonia cannot be excluded. Please note that all CT scans at this facility use dose modulation, iterative reconstruction, and/or weight-based dosing when appropriate to reduce radiation dose to as low as reasonably achievable. Dictated by Asaf Simmons MD @ 03/20/2021 10:50:36 AM (Electronically Signed)
[2021-03-19] MEDS: Albuterol/Ipratropium 4 GM Inhalation Spray INH SCH ×4 (05:19→21:43)
--- NOTE | 2021-03-19 09:21 | CR ---
CHEST: Portable 03/18/2021 at 9:59 PM CLINICAL HISTORY:Dyspnea COMPARISON:None FINDINGS: There is a dense left lower lobe pneumonic infiltrate with near complete opacification peripherally. There is mild patchy density in the right infrahilar region. IMPRESSION: Dense pneumonic infiltrate left lower lobe Possible minimal right lower lobe pneumonia
[2021-03-19] MEDS: Acetaminophen 325 MG Tab PO PRN ×3 (09:56→21:40)
[2021-03-19] MEDS: Levofloxacin/Dextrose 5%-Water 750 MG in Premix Bag 1 BAG IV SCH (12:01)
[2021-03-19] MEDS: Ibuprofen 400 MG Tab PO PRN (17:00)
[2021-03-19] MEDS ORDERED: REMDESIVIR 100 MG in Sodium Chloride 0.9% 100 ML IV SCH (17:00)
[2021-03-19] MEDS: Enoxaparin 40 MG/0.4 ML Syringe SUBCUT SCH (17:01)
--- NOTE | 2021-03-19 17:03 | PCM.PN ---
- General Info Date of Service: 03/19/21 Subjective Update: Ms. Parisi has remained fairly stable since admission last night. She presented with shortness of breath cough and fever, secondary to COVID-19 infection and bacterial pneumonia. She has been started on broad-spectrum IV antibiotic therapy. There was likely a component of sepsis associated with the pneumonia. Because of the Covid infection she has not received the usual fluid resuscitation. She was found to be hypoxic and has been on supplemental oxygen. Respiratory status has remained stable and current saturations are within desired range on 2 to 3 L of oxygen via nasal cannula. Functional Status: Reports: Tolerating Diet, Urinating - Review of Systems General: Reports: Weakness, Fatigue. Denies: Fever, Chills Pulmonary: Reports: Shortness of Breath, Cough. Denies: Pleuritic Chest Pain, Sputum, Hemoptysis, Wheezing Cardiovascular: Reports: Dyspnea on Exertion. Denies: Chest Pain, Palpitations, Orthopnea, PND, Edema, Lightheadedness Gastrointestinal: Reports: No Symptoms Genitourinary: Reports: No Symptoms - Patient Data Vitals - Most Recent: Last Vital Signs Temp 96.6 F L 03/19/21 15:00 Pulse 94 03/19/21 15:00 Resp 16 03/19/21 15:00 BP 100/56 L 03/19/21 15:00 Pulse Ox 96 03/19/21 15:00 Weight - Most Recent: 152 lb I&O - Last 24 Hours: Intake & Output 03/19/21 03/19/21 03/19/21 06:59 14:59 22:59 Intake Total 400 250 Output Total 450 700 900 Balance -450 -300 -650 Lab Results Last 24 Hours: Laboratory Results - last 24 hr 03/18/21 03/18/21 03/18/21 Range/Units 21:48 21:48 21:51 WBC 2.9 L (4.5-11.0) K/uL RBC 4.61 (3.30-5.50) M/uL Hgb 13.1 (12.0-15.0) g/dL Hct 38.7 (36.0-48.0) % MCV 84 (80-98) fL MCH 28 (27-31) pg MCHC 34 (32-36) % Plt Count 132 L (150-400) K/uL Add Manual Diff Yes Neutrophils % (Manual) 80 H (36-66) % Band Neutrophils % 10 (5-11) % Lymphocytes % (Manual) 9 L (24-44) % Monocytes % (Manual) 1 L (2-6) % Eosinophils % (Manual) (2-4) % Basophils % (Manual) (0-1) % PT (9.2-10.6) sec INR D-Dimer, Quantitative (0.0-500.0) ng/mL Sodium (140-148) mmol/L Potassium (3.6-5.2) mmol/L Chloride (100-108) mmol/L Carbon Dioxide (21-32) mmol/L Anion Gap (5.0-14.0) mmol/L BUN (7-18) mg/dL Creatinine (0.6-1.0) mg/dL Est Cr Clr Drug Dosing mL/min Estimated GFR (MDRD) (>60) Glucose (74-106) mg/dL Lactic Acid (0.4-2.0) mmol/L Calcium (8.5-10.1) mg/dL Magnesium (1.8-2.4) mg/dL Ferritin (8-388) ng/ml Total Bilirubin 0.4 (0.2-1.0) mg/dL Direct Bilirubin 0.18 (0.0-0.2) mg/dL Indirect Bilirubin 0.22 AST 43 H (15-37) U/L ALT 75 (12-78) U/L Alkaline Phosphatase 89 (46-116) U/L Lactate Dehydrogenase (82-234) U/L C-Reactive Protein (0.0-0.3) mg/dL Total Protein 6.4 (6.4-8.2) g/dL Albumin 2.4 L (3.4-5.0) g/dL Globulin 4.0 H (2.3-3.5) g/dL Albumin/Globulin Ratio 0.6 L (1.2-2.2) Procalcitonin 1.13 ng/mL Urine Color (YELLOW) Urine Appearance (CLEAR) Urine pH (5.0-8.0) Ur Specific [place] (1.008-1.030) Urine Protein (NEGATIVE) mg/dL Urine Glucose (UA) (NEGATIVE) mg/dL Urine Ketones (NEGATIVE) mg/dL Urine Occult Blood (NEGATIVE) Urine Nitrite (NEGATIVE) Urine Bilirubin (NEGATIVE) Urine Urobilinogen (0.2-1.0) EU/dL Ur Leukocyte Esterase (NEGATIVE) Urine RBC (0-5) Urine WBC (0-5) Ur Epithelial Cells Amorphous Sediment Urine Bacteria Urine Mucus SARS-CoV-2 RNA (CIARA) (NEGATIVE) 03/18/21 03/18/21 03/18/21 Range/Units 21:51 21:51 21:51 WBC (4.5-11.0) K/uL RBC (3.30-5.50) M/uL Hgb (12.0-15.0) g/dL Hct (36.0-48.0) % MCV (80-98) fL MCH (27-31) pg MCHC (32-36) % Plt Count (150-400) K/uL Add Manual Diff Neutrophils % (Manual) (36-66) % Band Neutrophils % (5-11) % Lymphocytes % (Manual) (24-44) % Monocytes % (Manual) (2-6) % Eosinophils % (Manual) (2-4) % Basophils % (Manual) (0-1) % PT (9.2-10.6) sec INR D-Dimer, Quantitative 800.94 H (0.0-500.0) ng/mL Sodium 135 L (140-148) mmol/L Potassium 3.7 (3.6-5.2) mmol/L Chloride 96 L (100-108) mmol/L Carbon Dioxide 29 (21-32) mmol/L Anion Gap 13.7 (5.0-14.0) mmol/L BUN 21 H D (7-18) mg/dL Creatinine 1.1 H (0.6-1.0) mg/dL Est Cr Clr Drug Dosing 61.10 mL/min Estimated GFR (MDRD) 54 L (>60) Glucose 101 (74-106) mg/dL Lactic Acid 3.4 H (0.4-2.0) mmol/L Calcium 8.1 L (8.5-10.1) mg/dL Magnesium (1.8-2.4) mg/dL Ferritin 549 H (8-388) ng/ml Total Bilirubin 0.4 (0.2-1.0) mg/dL Direct Bilirubin (0.0-0.2) mg/dL Indirect Bilirubin AST 40 H (15-37) U/L ALT 72 (12-78) U/L Alkaline Phosphatase 89 (46-116) U/L Lactate Dehydrogenase 181 (82-234) U/L C-Reactive Protein 43.61 H (0.0-0.3) mg/dL Total Protein 6.4 (6.4-8.2) g/dL Albumin 2.4 L (3.4-5.0) g/dL Globulin 4.0 H (2.3-3.5) g/dL Albumin/Globulin Ratio 0.6 L (1.2-2.2) Procalcitonin ng/mL Urine Color (YELLOW) Urine Appearance (CLEAR) Urine pH (5.0-8.0) Ur Specific [place] (1.008-1.030) Urine Protein (NEGATIVE) mg/dL Urine Glucose (UA) (NEGATIVE) mg/dL Urine Ketones (NEGATIVE) mg/dL Urine Occult Blood (NEGATIVE) Urine Nitrite (NEGATIVE) Urine Bilirubin (NEGATIVE) Urine Urobilinogen (0.2-1.0) EU/dL Ur Leukocyte Esterase (NEGATIVE) Urine RBC (0-5) Urine WBC (0-5) Ur Epithelial Cells Amorphous Sediment Urine Bacteria Urine Mucus SARS-CoV-2 RNA (CIARA) (NEGATIVE) 03/18/21 03/18/21 03/19/21 Range/Units 22:05 23:49 05:32 WBC (4.5-11.0) K/uL RBC (3.30-5.50) M/uL Hgb (12.0-15.0) g/dL Hct (36.0-48.0) % MCV (80-98) fL MCH (27-31) pg MCHC (32-36) % Plt Count (150-400) K/uL Add Manual Diff Neutrophils % (Manual) (36-66) % Band Neutrophils % (5-11) % Lymphocytes % (Manual) (24-44) % Monocytes % (Manual) (2-6) % Eosinophils % (Manual) (2-4) % Basophils % (Manual) (0-1) % PT (9.2-10.6) sec INR D-Dimer, Quantitative (0.0-500.0) ng/mL Sodium (140-148) mmol/L Potassium (3.6-5.2) mmol/L Chloride (100-108) mmol/L Carbon Dioxide (21-32) mmol/L Anion Gap (5.0-14.0) mmol/L BUN (7-18) mg/dL Creatinine (0.6-1.0) mg/dL Est Cr Clr Drug Dosing mL/min Estimated GFR (MDRD) (>60) Glucose (74-106) mg/dL Lactic Acid (0.4-2.0) mmol/L Calcium (8.5-10.1) mg/dL Magnesium (1.8-2.4) mg/dL Ferritin (8-388) ng/ml Total Bilirubin (0.2-1.0) mg/dL Direct Bilirubin (0.0-0.2) mg/dL Indirect Bilirubin AST (15-37) U/L ALT (12-78) U/L Alkaline Phosphatase (46-116) U/L Lactate Dehydrogenase (82-234) U/L C-Reactive Protein (0.0-0.3) mg/dL Total Protein (6.4-8.2) g/dL Albumin (3.4-5.0) g/dL Globulin (2.3-3.5) g/dL Albumin/Globulin Ratio (1.2-2.2) Procalcitonin 1.11 ng/mL Urine Color Yellow (YELLOW) Urine Appearance Slightly cloudy A (CLEAR) Urine pH 6.0 (5.0-8.0) Ur Specific [place] 1.010 (1.008-1.030) Urine Protein 30 H (NEGATIVE) mg/dL Urine Glucose (UA) Negative (NEGATIVE) mg/dL Urine Ketones Negative (NEGATIVE) mg/dL Urine Occult Blood Trace-intact H (NEGATIVE) Urine Nitrite Negative (NEGATIVE) Urine Bilirubin Negative (NEGATIVE) Urine Urobilinogen 0.2 (0.2-1.0) EU/dL Ur Leukocyte Esterase Negative (NEGATIVE) Urine RBC 0-5 (0-5) Urine WBC 0-5 (0-5) Ur Epithelial Cells Few Amorphous Sediment Moderate Urine Bacteria Moderate Urine Mucus Not seen SARS-CoV-2 RNA (CIARA) Positive H (NEGATIVE) 03/19/21 03/19/21 03/19/21 Range/Units 05:32 05:32 05:32 WBC 1.6 L (4.5-11.0) K/uL RBC 4.66 (3.30-5.50) M/uL Hgb 13.4 (12.0-15.0) g/dL Hct 39.2 (36.0-48.0) % MCV 84 (80-98) fL MCH 29 (27-31) pg MCHC 34 (32-36) % Plt Count 133 L (150-400) K/uL Add Manual Diff Yes Neutrophils % (Manual) 69 H (36-66) % Band Neutrophils % 7 (5-11) % Lymphocytes % (Manual) 17 L (24-44) % Monocytes % (Manual) 7 H (2-6) % Eosinophils % (Manual) 0 L (2-4) % Basophils % (Manual) 0 (0-1) % PT 10.8 H (9.2-10.6) sec INR 1.1 D-Dimer, Quantitative (0.0-500.0) ng/mL Sodium 136 L (140-148) mmol/L Potassium 3.9 (3.6-5.2) mmol/L Chloride 99 L (100-108) mmol/L Carbon Dioxide 26 (21-32) mmol/L Anion Gap 14.9 H (5.0-14.0) mmol/L BUN 17 (7-18) mg/dL Creatinine 1.0 (0.6-1.0) mg/dL Est Cr Clr Drug Dosing 67.21 mL/min Estimated GFR (MDRD) > 60 (>60) Glucose 99 (74-106) mg/dL Lactic Acid (0.4-2.0) mmol/L Calcium 8.0 L (8.5-10.1) mg/dL Magnesium 1.7 L (1.8-2.4) mg/dL Ferritin (8-388) ng/ml Total Bilirubin (0.2-1.0) mg/dL Direct Bilirubin (0.0-0.2) mg/dL Indirect Bilirubin AST (15-37) U/L ALT (12-78) U/L Alkaline Phosphatase (46-116) U/L Lactate Dehydrogenase (82-234) U/L C-Reactive Protein 43.78 H (0.0-0.3) mg/dL Total Protein (6.4-8.2) g/dL Albumin (3.4-5.0) g/dL Globulin (2.3-3.5) g/dL Albumin/Globulin Ratio (1.2-2.2) Procalcitonin ng/mL Urine Color (YELLOW) Urine Appearance (CLEAR) Urine pH (5.0-8.0) Ur Specific [place] (1.008-1.030) Urine Protein (NEGATIVE) mg/dL Urine Glucose (UA) (NEGATIVE) mg/dL Urine Ketones (NEGATIVE) mg/dL Urine Occult Blood (NEGATIVE) Urine Nitrite (NEGATIVE) Urine Bilirubin (NEGATIVE) Urine Urobilinogen (0.2-1.0) EU/dL Ur Leukocyte Esterase (NEGATIVE) Urine RBC (0-5) Urine WBC (0-5) Ur Epithelial Cells Amorphous Sediment Urine Bacteria Urine Mucus SARS-CoV-2 RNA (CIARA) (NEGATIVE) 03/19/21 Range/Units 05:32 WBC (4.5-11.0) K/uL RBC (3.30-5.50) M/uL Hgb (12.0-15.0) g/dL Hct (36.0-48.0) % MCV (80-98) fL MCH (27-31) pg MCHC (32-36) % Plt Count (150-400) K/uL Add Manual Diff Neutrophils % (Manual) (36-66) % Band Neutrophils % (5-11) % Lymphocytes % (Manual) (24-44) % Monocytes % (Manual) (2-6) % Eosinophils % (Manual) (2-4) % Basophils % (Manual) (0-1) % PT (9.2-10.6) sec INR D-Dimer, Quantitative (0.0-500.0) ng/mL Sodium (140-148) mmol/L Potassium (3.6-5.2) mmol/L Chloride (100-108) mmol/L Carbon Dioxide (21-32) mmol/L Anion Gap (5.0-14.0) mmol/L BUN (7-18) mg/dL Creatinine (0.6-1.0) mg/dL Est Cr Clr Drug Dosing mL/min Estimated GFR (MDRD) (>60) Glucose (74-106) mg/dL Lactic Acid 3.4 H (0.4-2.0) mmol/L Calcium (8.5-10.1) mg/dL Magnesium (1.8-2.4) mg/dL Ferritin (8-388) ng/ml Total Bilirubin (0.2-1.0) mg/dL Direct Bilirubin (0.0-0.2) mg/dL Indirect Bilirubin AST (15-37) U/L ALT (12-78) U/L Alkaline Phosphatase (46-116) U/L Lactate Dehydrogenase (82-234) U/L C-Reactive Protein (0.0-0.3) mg/dL Total Protein (6.4-8.2) g/dL Albumin (3.4-5.0) g/dL Globulin (2.3-3.5) g/dL Albumin/Globulin Ratio (1.2-2.2) Procalcitonin ng/mL Urine Color (YELLOW) Urine Appearance (CLEAR) Urine pH (5.0-8.0) Ur Specific [place] (1.008-1.030) Urine Protein (NEGATIVE) mg/dL Urine Glucose (UA) (NEGATIVE) mg/dL Urine Ketones (NEGATIVE) mg/dL Urine Occult Blood (NEGATIVE) Urine Nitrite (NEGATIVE) Urine Bilirubin (NEGATIVE) Urine Urobilinogen (0.2-1.0) EU/dL Ur Leukocyte Esterase (NEGATIVE) Urine RBC (0-5) Urine WBC (0-5) Ur Epithelial Cells Amorphous Sediment Urine Bacteria Urine Mucus SARS-CoV-2 RNA (CIARA) (NEGATIVE) Med Orders - Current: Current Medications Acetaminophen (Acetaminophen 325 Mg Tab) 650 mg PO Q4H PRN PRN Reason: Pain (Mild 1-3)/fever Last Admin: 03/19/21 14:19 Dose: 650 mg Documented by: Albuterol (Albuterol 8 Gm Inhaler) 2 gm INH Q2H PRN PRN Reason: Cough Albuterol/Ipratropium (Albuterol/Ipratropium 4 Gm Inhalation [place]) 1 gm INH QID [facility] Last Admin: 03/19/21 16:45 Dose: 1 puff Documented by: Dexamethasone (Dexamethasone 2 Mg Tab) 6 mg PO Q24H [facility] Docusate Sodium (Docusate Sodium 100 Mg Cap) 100 mg PO BID PRN PRN Reason: Constipation Enoxaparin Sodium (Enoxaparin 40 Mg/0.4 Ml Syringe) 40 mg SUBCUT Q12H [facility] Ceftriaxone Sodium 2 gm/ (Sodium Chloride) 50 mls @ 100 mls/hr IV Q24H [facility] Last Admin: 03/19/21 03:30 Dose: 100 mls/hr Documented by: Levofloxacin/Dextrose 750 mg/ (Premix) 150 mls @ 100 mls/hr IV Q24H [facility] Last Admin: 03/19/21 12:01 Dose: 100 mls/hr Documented by: Vancomycin HCl 1 gm/ Sodium (Chloride) 250 mls @ 167 mls/hr IV Q8H [facility] Last Admin: 03/19/21 16:39 Dose: 167 mls/hr Documented by: Magnesium Sulfate 2 gm/ Premix 50 mls @ 25 mls/hr IV Q6H [facility] Stop: 03/19/21 18:59 Remdesivir 100 mg/ Sodium (Chloride) 100 mls @ 100 mls/hr IV Q24H [facility] Stop: 03/22/21 23:59 Ibuprofen (Ibuprofen 400 Mg Tab) 400 mg PO Q6H PRN PRN Reason: Pain (moderate 4-6) Lorazepam (Lorazepam 2 Mg/Ml Sdv) 1 mg IV Q6H PRN PRN Reason: Nausea/Vomiting Magnesium Oxide (Magnesium Oxide 400 Mg Tab) 400 mg PO BID [facility] Melatonin (Melatonin 3 Mg Tab) 6 mg PO BEDTIME PRN PRN Reason: Insomnia Morphine Sulfate (Morphine 2 Mg/Ml Syringe) 2 mg IVPUSH Q2H PRN PRN Reason: Pain (severe 7-10) Ondansetron HCl (Ondansetron 4 Mg Tab.Dis) 4 mg PO Q6H PRN PRN Reason: Nausea able to take PO Last Admin: 03/19/21 08:10 Dose: 4 mg Documented by: Oxycodone HCl (Oxycodone 5 Mg Tab) 5 mg PO Q4H PRN PRN Reason: Pain (moderate 4-6) Sodium Chloride (Sodium Chloride 0.9% 10 Ml Syringe) 10 ml FLUSH ASDIRECTED PRN PRN Reason: Keep Vein Open Discontinued Medications Dexamethasone (Dexamethasone 2 Mg Tab) 6 mg PO DAILY [facility] Last Admin: 03/19/21 01:59 Dose: 6 mg Documented by: Enoxaparin Sodium (Enoxaparin 40 Mg/0.4 Ml Syringe) 40 mg SUBCUT Q12H [facility] Last Admin: 03/19/21 03:31 Dose: 40 mg Documented by: Sodium Chloride (Normal Saline) 1,000 mls @ 999 mls/hr IV ASDIRECTED [facility] Last Admin: 03/18/21 22:15 Dose: 999 mls/hr Documented by: Sodium Chloride (Normal Saline) 100 mls @ 3 mls/sec IV ASDIRECTED OMKAR Stop: 03/19/21 10:00 Last Admin: 03/19/21 03:01 Dose: 3 mls/sec Documented by: Remdesivir 200 mg/ Sodium (Chloride) 250 mls @ 250 mls/hr IV ONETIME ONE Stop: 03/19/21 00:00 Last Admin: 03/19/21 02:02 Dose: 250 mls/hr Documented by: Vancomycin HCl 1.5 gm/ Sodium (Chloride) 250 mls @ 150 mls/hr IV Q12H [facility] Last Admin: 03/19/21 04:34 Dose: 150 mls/hr Documented by: Vancomycin HCl 1 gm/ Sodium (Chloride) 250 mls @ 167 mls/hr IV Q8HR [facility] Last Admin: 03/19/21 16:23 Dose: Not Given Documented by: Remdesivir 100 mg/ Sodium (Chloride) 100 mls @ 100 mls/hr IV Q24H [facility] Stop: 03/22/21 17:59 Influenza Virus Vaccine (Pharmacy To Dose - Influenza Vaccine) 1 each IM ONETI ME ONE Stop: 03/19/21 10:01 Influenza Virus Vaccine (Flu Vacc [id number](6mos Up)/Pf 60 Mcg/0.5 Ml Syringe) 60 mcg IM .ONCE ONE Stop: 03/19/21 09:01 Last Admin: 03/19/21 08:15 Dose: Not Given Documented by: Iopamidol (Iopamidol 755 Mg/Ml 100 Ml Bottle) 100 ml IV . DIRECTED OMKAR Stop: 03/19/21 10:00 Last Admin: 03/19/21 03:00 Dose: 100 ml Documented by: Ondansetron HCl (Ondansetron 4 Mg/2 Ml Sdv) 4 mg IVPUSH ONETIME ONE Stop: 03/18/21 21:37 Last Admin: 03/18/21 22:12 Dose: 4 mg Documented by: Sodium Chloride (Sodium Chloride 0.9% 10 Ml Syringe) 10 ml FLUSH ASDIRECTED PRN PRN Reason: Keep Vein Open Last Admin: 03/18/21 22:12 Dose: 10 ml Documented by: Sodium Chloride (Sodium Chloride 0.9% 10 Ml Syringe) 10 ml FLUSH ONETIME ONE Stop: 03/18/21 23:50 Last Admin: 03/19/21 03:01 Dose: 10 ml Documented by: - Exam Quality Assessment: Supplemental Oxygen, DVT Prophylaxis General: Alert, Oriented, Cooperative, Mild Distress Lungs: Normal Respiratory Effort, Decreased Breath Sounds. No: Rales, Rhonchi, Wheezing Cardiovascular: Regular Rate, Regular Rhythm, No Murmurs GI/Abdominal Exam: Soft, Non-Tender, No Organomegaly, No Distention Extremities: Non-Tender, No Pedal Edema Skin: Warm, Dry, Intact - Patient Data Lab Results Last 24 hrs: Laboratory Results - last 24 hr 03/18/21 03/18/21 03/18/21 Range/Units 21:48 21:48 21:51 WBC 2.9 L (4.5-11.0) K/uL RBC 4.61 (3.30-5.50) M/uL Hgb 13.1 (12.0-15.0) g/dL Hct 38.7 (36.0-48.0) % MCV 84 (80-98) fL MCH 28 (27-31) pg MCHC 34 (32-36) % Plt Count 132 L (150-400) K/uL Add Manual Diff Yes Neutrophils % (Manual) 80 H (36-66) % Band Neutrophils % 10 (5-11) % Lymphocytes % (Manual) 9 L (24-44) % Monocytes % (Manual) 1 L (2-6) % Eosinophils % (Manual) (2-4) % Basophils % (Manual) (0-1) % PT (9.2-10.6) sec INR D-Dimer, Quantitative (0.0-500.0) ng/mL Sodium (140-148) mmol/L Potassium (3.6-5.2) mmol/L Chloride (100-108) mmol/L Carbon Dioxide (21-32) mmol/L Anion Gap (5.0-14.0) mmol/L BUN (7-18) mg/dL Creatinine (0.6-1.0) mg/dL Est Cr Clr Drug Dosing mL/min Estimated GFR (MDRD) (>60) Glucose (74-106) mg/dL Lactic Acid (0.4-2.0) mmol/L Calcium (8.5-10.1) mg/dL Magnesium (1.8-2.4) mg/dL Ferritin (8-388) ng/ml Total Bilirubin 0.4 (0.2-1.0) mg/dL Direct Bilirubin 0.18 (0.0-0.2) mg/dL Indirect Bilirubin 0.22 AST 43 H (15-37) U/L ALT 75 (12-78) U/L Alkaline Phosphatase 89 (46-116) U/L Lactate Dehydrogenase (82-234) U/L C-Reactive Protein (0.0-0.3) mg/dL Total Protein 6.4 (6.4-8.2) g/dL Albumin 2.4 L (3.4-5.0) g/dL Globulin 4.0 H (2.3-3.5) g/dL Albumin/Globulin Ratio 0.6 L (1.2-2.2) Procalcitonin 1.13 ng/mL Urine Color (YELLOW) Urine Appearance (CLEAR) Urine pH (5.0-8.0) Ur Specific [place] (1.008-1.030) Urine Protein (NEGATIVE) mg/dL Urine Glucose (UA) (NEGATIVE) mg/dL Urine Ketones (NEGATIVE) mg/dL Urine Occult Blood (NEGATIVE) Urine Nitrite (NEGATIVE) Urine Bilirubin (NEGATIVE) Urine Urobilinogen (0.2-1.0) EU/dL Ur Leukocyte Esterase (NEGATIVE) Urine RBC (0-5) Urine WBC (0-5) Ur Epithelial Cells Amorphous Sediment Urine Bacteria Urine Mucus SARS-CoV-2 RNA (CIARA) (NEGATIVE) 03/18/21 03/18/21 03/18/21 Range/Units 21:51 21:51 21:51 WBC (4.5-11.0) K/uL RBC (3.30-5.50) M/uL Hgb (12.0-15.0) g/dL Hct (36.0-48.0) % MCV (80-98) fL MCH (27-31) pg MCHC (32-36) % Plt Count (150-400) K/uL Add Manual Diff Neutrophils % (Manual) (36-66) % Band Neutrophils % (5-11) % Lymphocytes % (Manual) (24-44) % Monocytes % (Manual) (2-6) % Eosinophils % (Manual) (2-4) % Basophils % (Manual) (0-1) % PT (9.2-10.6) sec INR D-Dimer, Quantitative 800.94 H (0.0-500.0) ng/mL Sodium 135 L (140-148) mmol/L Potassium 3.7 (3.6-5.2) mmol/L Chloride 96 L (100-108) mmol/L Carbon Dioxide 29 (21-32) mmol/L Anion Gap 13.7 (5.0-14.0) mmol/L BUN 21 H D (7-18) mg/dL Creatinine 1.1 H (0.6-1.0) mg/dL Est Cr Clr Drug Dosing 61.10 mL/min Estimated GFR (MDRD) 54 L (>60) Glucose 101 (74-106) mg/dL Lactic Acid 3.4 H (0.4-2.0) mmol/L Calcium 8.1 L (8.5-10.1) mg/dL Magnesium (1.8-2.4) mg/dL Ferritin 549 H (8-388) ng/ml Total Bilirubin 0.4 (0.2-1.0) mg/dL Direct Bilirubin (0.0-0.2) mg/dL Indirect Bilirubin AST 40 H (15-37) U/L ALT 72 (12-78) U/L Alkaline Phosphatase 89 (46-116) U/L Lactate Dehydrogenase 181 (82-234) U/L C-Reactive Protein 43.61 H (0.0-0.3) mg/dL Total Protein 6.4 (6.4-8.2) g/dL Albumin 2.4 L (3.4-5.0) g/dL Globulin 4.0 H (2.3-3.5) g/dL Albumin/Globulin Ratio 0.6 L (1.2-2.2) Procalcitonin ng/mL Urine Color (YELLOW) Urine Appearance (CLEAR) Urine pH (5.0-8.0) Ur Specific [place] (1.008-1.030) Urine Protein (NEGATIVE) mg/dL Urine Glucose (UA) (NEGATIVE) mg/dL Urine Ketones (NEGATIVE) mg/dL Urine Occult Blood (NEGATIVE) Urine Nitrite (NEGATIVE) Urine Bilirubin (NEGATIVE) Urine Urobilinogen (0.2-1.0) EU/dL Ur Leukocyte Esterase (NEGATIVE) Urine RBC (0-5) Urine WBC (0-5) Ur Epithelial Cells Amorphous Sediment Urine Bacteria Urine Mucus SARS-CoV-2 RNA (CIARA) (NEGATIVE) 03/18/21 03/18/21 03/19/21 Range/Units 22:05 23:49 05:32 WBC (4.5-11.0) K/uL RBC (3.30-5.50) M/uL Hgb (12.0-15.0) g/dL Hct (36.0-48.0) % MCV (80-98) fL MCH (27-31) pg MCHC (32-36) % Plt Count (150-400) K/uL Add Manual Diff Neutrophils % (Manual) (36-66) % Band Neutrophils % (5-11) % Lymphocytes % (Manual) (24-44) % Monocytes % (Manual) (2-6) % Eosinophils % (Manual) (2-4) % Basophils % (Manual) (0-1) % PT (9.2-10.6) sec INR D-Dimer, Quantitative (0.0-500.0) ng/mL Sodium (140-148) mmol/L Potassium (3.6-5.2) mmol/L Chloride (100-108) mmol/L Carbon Dioxide (21-32) mmol/L Anion Gap (5.0-14.0) mmol/L BUN (7-18) mg/dL Creatinine (0.6-1.0) mg/dL Est Cr Clr Drug Dosing mL/min Estimated GFR (MDRD) (>60) Glucose (74-106) mg/dL Lactic Acid (0.4-2.0) mmol/L Calcium (8.5-10.1) mg/dL Magnesium (1.8-2.4) mg/dL Ferritin (8-388) ng/ml Total Bilirubin (0.2-1.0) mg/dL Direct Bilirubin (0.0-0.2) mg/dL Indirect Bilirubin AST (15-37) U/L ALT (12-78) U/L Alkaline Phosphatase (46-116) U/L Lactate Dehydrogenase (82-234) U/L C-Reactive Protein (0.0-0.3) mg/dL Total Protein (6.4-8.2) g/dL Albumin (3.4-5.0) g/dL Globulin (2.3-3.5) g/dL Albumin/Globulin Ratio (1.2-2.2) Procalcitonin 1.11 ng/mL Urine Color Yellow (YELLOW) Urine Appearance Slightly cloudy A (CLEAR) Urine pH 6.0 (5.0-8.0) Ur Specific [place] 1.010 (1.008-1.030) Urine Protein 30 H (NEGATIVE) mg/dL Urine Glucose (UA) Negative (NEGATIVE) mg/dL Urine Ketones Negative (NEGATIVE) mg/dL Urine Occult Blood Trace-intact H (NEGATIVE) Urine Nitrite Negative (NEGATIVE) Urine Bilirubin Negative (NEGATIVE) Urine Urobilinogen 0.2 (0.2-1.0) EU/dL Ur Leukocyte Esterase Negative (NEGATIVE) Urine RBC 0-5 (0-5) Urine WBC 0-5 (0-5) Ur Epithelial Cells Few Amorphous Sediment Moderate Urine Bacteria Moderate Urine Mucus Not seen SARS-CoV-2 RNA (CIARA) Positive H (NEGATIVE) 03/19/21 03/19/21 03/19/21 Range/Units 05:32 05:32 05:32 WBC 1.6 L (4.5-11.0) K/uL RBC 4.66 (3.30-5.50) M/uL Hgb 13.4 (12.0-15.0) g/dL Hct 39.2 (36.0-48.0) % MCV 84 (80-98) fL MCH 29 (27-31) pg MCHC 34 (32-36) % Plt Count 133 L (150-400) K/uL Add Manual Diff Yes Neutrophils % (Manual) 69 H (36-66) % Band Neutrophils % 7 (5-11) % Lymphocytes % (Manual) 17 L (24-44) % Monocytes % (Manual) 7 H (2-6) % Eosinophils % (Manual) 0 L (2-4) % Basophils % (Manual) 0 (0-1) % PT 10.8 H (9.2-10.6) sec INR 1.1 D-Dimer, Quantitative (0.0-500.0) ng/mL Sodium 136 L (140-148) mmol/L Potassium 3.9 (3.6-5.2) mmol/L Chloride 99 L (100-108) mmol/L Carbon Dioxide 26 (21-32) mmol/L Anion Gap 14.9 H (5.0-14.0) mmol/L BUN 17 (7-18) mg/dL Creatinine 1.0 (0.6-1.0) mg/dL Est Cr Clr Drug Dosing 67.21 mL/min Estimated GFR (MDRD) > 60 (>60) Glucose 99 (74-106) mg/dL Lactic Acid (0.4-2.0) mmol/L Calcium 8.0 L (8.5-10.1) mg/dL Magnesium 1.7 L (1.8-2.4) mg/dL Ferritin (8-388) ng/ml Total Bilirubin (0.2-1.0) mg/dL Direct Bilirubin (0.0-0.2) mg/dL Indirect Bilirubin AST (15-37) U/L ALT (12-78) U/L Alkaline Phosphatase (46-116) U/L Lactate Dehydrogenase (82-234) U/L C-Reactive Protein 43.78 H (0.0-0.3) mg/dL Total Protein (6.4-8.2) g/dL Albumin (3.4-5.0) g/dL Globulin (2.3-3.5) g/dL Albumin/Globulin Ratio (1.2-2.2) Procalcitonin ng/mL Urine Color (YELLOW) Urine Appearance (CLEAR) Urine pH (5.0-8.0) Ur Specific [place] (1.008-1.030) Urine Protein (NEGATIVE) mg/dL Urine Glucose (UA) (NEGATIVE) mg/dL Urine Ketones (NEGATIVE) mg/dL Urine Occult Blood (NEGATIVE) Urine Nitrite (NEGATIVE) Urine Bilirubin (NEGATIVE) Urine Urobilinogen (0.2-1.0) EU/dL Ur Leukocyte Esterase (NEGATIVE) Urine RBC (0-5) Urine WBC (0-5) Ur Epithelial Cells Amorphous Sediment Urine Bacteria Urine Mucus SARS-CoV-2 RNA (CIARA) (NEGATIVE) 03/19/21 Range/Units 05:32 WBC (4.5-11.0) K/uL RBC (3.30-5.50) M/uL Hgb (12.0-15.0) g/dL Hct (36.0-48.0) % MCV (80-98) fL MCH (27-31) pg MCHC (32-36) % Plt Count (150-400) K/uL Add Manual Diff Neutrophils % (Manual) (36-66) % Band Neutrophils % (5-11) % Lymphocytes % (Manual) (24-44) % Monocytes % (Manual) (2-6) % Eosinophils % (Manual) (2-4) % Basophils % (Manual) (0-1) % PT (9.2-10.6) sec INR D-Dimer, Quantitative (0.0-500.0) ng/mL Sodium (140-148) mmol/L Potassium (3.6-5.2) mmol/L Chloride (100-108) mmol/L Carbon Dioxide (21-32) mmol/L Anion Gap (5.0-14.0) mmol/L BUN (7-18) mg/dL Creatinine (0.6-1.0) mg/dL Est Cr Clr Drug Dosing mL/min Estimated GFR (MDRD) (>60) Glucose (74-106) mg/dL Lactic Acid 3.4 H (0.4-2.0) mmol/L Calcium (8.5-10.1) mg/dL Magnesium (1.8-2.4) mg/dL Ferritin (8-388) ng/ml Total Bilirubin (0.2-1.0) mg/dL Direct Bilirubin (0.0-0.2) mg/dL Indirect Bilirubin AST (15-37) U/L ALT (12-78) U/L Alkaline Phosphatase (46-116) U/L Lactate Dehydrogenase (82-234) U/L C-Reactive Protein (0.0-0.3) mg/dL Total Protein (6.4-8.2) g/dL Albumin (3.4-5.0) g/dL Globulin (2.3-3.5) g/dL Albumin/Globulin Ratio (1.2-2.2) Procalcitonin ng/mL Urine Color (YELLOW) Urine Appearance (CLEAR) Urine pH (5.0-8.0) Ur Specific [place] (1.008-1.030) Urine Protein (NEGATIVE) mg/dL Urine Glucose (UA) (NEGATIVE) mg/dL Urine Ketones (NEGATIVE) mg/dL Urine Occult Blood (NEGATIVE) Urine Nitrite (NEGATIVE) Urine Bilirubin (NEGATIVE) Urine Urobilinogen (0.2-1.0) EU/dL Ur Leukocyte Esterase (NEGATIVE) Urine RBC (0-5) Urine WBC (0-5) Ur Epithelial Cells Amorphous Sediment Urine Bacteria Urine Mucus SARS-CoV-2 RNA (CIARA) (NEGATIVE) Result Diagrams: 03/19/21 05:32 03/19/21 05:32 Sepsis Event Note - Evaluation Sepsis Screening Result: No Definite Risk - Focused Exam Vital Signs: Vital Signs Temp Pulse Resp BP Pulse Ox 03/19/21 15:00 96.6 F L 94 16 100/56 L 96 03/19/21 12:22 92 L 03/19/21 11:00 96.2 F L 109 H 18 96 03/19/21 07:20 94 L 03/19/21 07:00 95.3 F L 109 H 19 73/49 L 93 L - Problem List Review Problem List Initiated/Reviewed/Updated: Yes - My Orders Last 24 Hours: My Active Orders 03/19/21 11:00 Levofloxacin/Dextrose 5%-Water [Levaquin in D5W 750 MG/150 ML] 750 mg Premix Bag 1 bag IV Q24H 03/19/21 16:31 Ibuprofen [Motrin] 400 mg PO Q6H PRN 03/19/21 17:00 Magnesium Oxide 400 mg PO BID Magnesium Sulfate/Water [Magnesium Sulfate in Water 2 GM/50 ML] 2 gm Premix Bag 1 bag IV Q6H 03/19/21 23:00 Remdesivir 100 mg Sodium Chloride 0.9% [Normal Saline] 100 ml IV Q24H 03/20/21 05:00 CBC WITH AUTO DIFF [HEME] Timed COMPREHENSIVE METABOLIC PN,CMP [CHEM] Timed MAGNESIUM [CHEM] Timed 03/20/21 05:11 CRP [C-REACTIVE PROTEIN] [CHEM] AM D Dimer [D-DIMER QUANTITATIVE] [COAG] AM - Plan Plan:: ASSESSMENT AND PLAN COVID-19 pneumonia-complicated by hypoxia and bacterial pneumonia. She has not been vaccinated. Tested positive on March 18 at [place] but has been sick for 10 days. Elevation of D-dimer 800.94 -IV Remdesivir 400 mg given in the emergency department, followed by 200 mg daily for 4 days, today is day 2 of 5 -PO Dexamethasone 6 mg daily, today is day 2 -Supplement oxygen as needed -Symptomatic management of cough -albuterol inhaler 2 puffs every 2 hours as needed for cough -albuterol - atrovent inhaler 1 puff 4 times a day scheduled -Goal of negative fluid balance each day -Isolation precautions Bacterial pneumonia left lung-complicating COVID-19 infection. Evidence of more dense consolidation of the left lung on CT scan, procalcitonin level elevated. Probable component of sepsis. -IV fluids, will not bolus according to sepsis protocol because of COVID-19 infection -Blood cultures pending -Because of associated sepsis broad-spectrum IV antibiotic therapy; vancomycin, ceftriaxone, levofloxacin, pending culture results Legal Blindness -orient to room -at risk for falls, tripping or slips -call light Maintenance issues - -DVT prophylaxis-enoxaparin 40 mg subcut bid -GI prophylaxis-not indicated -Nutrition-regular -Cardona catheter-not indicated CODE STATUS: FULL Admission status: Admit to 2ND Floor Med-Surg Admission justification. This patient will be admitted for inpatient services and is medically appropriate meeting medical necessity for inpatient admission as outlined in my documentation. I reasonably expect the patient will require inpatient services that span. Time over 2 midnights. I reasonably expect this patient to be discharged or transferred within 96 hours after admission to the critical access hospital. Disposition: home with family Primary care provider: Dr. Garcia, [facility] Hospitalist: Dr. Goel
[2021-03-19] MEDS: Magnesium Oxide 400 MG Tab PO SCH ×2 (17:45→20:32)
[2021-03-19] MEDS: Dexamethasone 2 MG Tab PO SCH (17:45)
[2021-03-19] MEDS ORDERED: Magnesium Sulfate/Water 2 GM in Premix Bag 1 BAG IV SCH (18:00)
[2021-03-19] MEDS: REMDESIVIR 100 MG in Sodium Chloride 0.9% 100 ML IV SCH (22:42)
[2021-03-20] MEDS: cefTRIAXone 2 GM in Sodium Chloride 0.9% 50 ML IV SCH (03:11)
[2021-03-20] MEDS: Ibuprofen 400 MG Tab PO PRN ×2 (03:49→22:24)
[2021-03-20] MEDS: Enoxaparin 40 MG/0.4 ML Syringe SUBCUT SCH ×2 (05:28→17:37)
[2021-03-20] MEDS: Albuterol/Ipratropium 4 GM Inhalation Spray INH SCH ×4 (05:29→22:09)
[2021-03-20] MEDS: Magnesium Oxide 400 MG Tab PO SCH ×2 (10:22→22:09)
--- NOTE | 2021-03-20 10:53 | PCM.PN ---
- General Info Date of Service: 03/20/21 Subjective Update: Ms. Parisi has remained stable since yesterday, continues to intermittently require use of supplemental oxygen. Vital signs have otherwise been stable and she has remained afebrile. She feels significantly improved, less short of breath and cough. Appetite and energy level seem to be improving. Functional Status: Reports: Tolerating Diet, Ambulating, Urinating - Review of Systems General: Reports: Weakness, Fatigue. Denies: Fever, Chills Pulmonary: Reports: Shortness of Breath, Cough. Denies: Pleuritic Chest Pain, Sputum, Hemoptysis, Wheezing Cardiovascular: Reports: Dyspnea on Exertion. Denies: Chest Pain, Palpitations, Orthopnea, PND, Edema, Lightheadedness Gastrointestinal: Reports: No Symptoms Genitourinary: Reports: No Symptoms - Patient Data Vitals - Most Recent: Last Vital Signs Temp 96.2 F L 03/20/21 07:00 Pulse 92 03/20/21 07:00 Resp 16 03/20/21 07:00 BP 114/68 03/20/21 07:00 Pulse Ox 92 L 03/20/21 07:30 Weight - Most Recent: 152 lb I&O - Last 24 Hours: Intake & Output 03/19/21 03/20/21 03/20/21 22:59 06:59 14:59 Intake Total 910 310 Output Total 1800 Balance -890 310 Lab Results Last 24 Hours: Laboratory Results - last 24 hr 03/18/21 03/20/21 03/20/21 Range/Units 23:49 05:00 05:00 WBC 8.3 (4.5-11.0) K/uL RBC 4.33 (3.30-5.50) M/uL Hgb 12.5 (12.0-15.0) g/dL Hct 36.3 (36.0-48.0) % MCV 84 (80-98) fL MCH 29 (27-31) pg MCHC 34 (32-36) % Plt Count 239 (150-400) K/uL Add Manual Diff Yes Neutrophils % (Manual) 79 H (36-66) % Band Neutrophils % 10 (5-11) % Lymphocytes % (Manual) 8 L (24-44) % Monocytes % (Manual) 3 (2-6) % D-Dimer, Quantitative (0.0-500.0) ng/mL Sodium 139 L (140-148) mmol/L Potassium 3.9 (3.6-5.2) mmol/L Chloride 102 (100-108) mmol/L Carbon Dioxide 27 (21-32) mmol/L Anion Gap 13.9 (5.0-14.0) mmol/L BUN 14 (7-18) mg/dL Creatinine 0.7 (0.6-1.0) mg/dL Est Cr Clr Drug Dosing 96.01 mL/min Estimated GFR (MDRD) > 60 (>60) Glucose 123 H (74-106) mg/dL Calcium 7.9 L (8.5-10.1) mg/dL Magnesium 2.5 H D (1.8-2.4) mg/dL Total Bilirubin 0.2 (0.2-1.0) mg/dL Direct Bilirubin 0.12 (0.0-0.2) mg/dL AST 29 (15-37) U/L ALT 47 (12-78) U/L Alkaline Phosphatase 87 (46-116) U/L C-Reactive Protein (0.0-0.3) mg/dL Total Protein 5.0 L (6.4-8.2) g/dL Albumin 1.9 L (3.4-5.0) g/dL Globulin 3.1 (2.3-3.5) g/dL Albumin/Globulin Ratio 0.6 L (1.2-2.2) Urine Color Yellow (YELLOW) Urine Appearance Slightly cloudy A (CLEAR) Urine pH 6.0 (5.0-8.0) Ur Specific [place] 1.010 (1.008-1.030) Urine Protein 30 H (NEGATIVE) mg/dL Urine Glucose (UA) Negative (NEGATIVE) mg/dL Urine Ketones Negative (NEGATIVE) mg/dL Urine Occult Blood Trace-intact H (NEGATIVE) Urine Nitrite Negative (NEGATIVE) Urine Bilirubin Negative (NEGATIVE) Urine Urobilinogen 0.2 (0.2-1.0) EU/dL Ur Leukocyte Esterase Negative (NEGATIVE) Urine RBC 0-5 (0-5) Urine WBC 0-5 (0-5) Ur Epithelial Cells Few Amorphous Sediment Moderate Urine Bacteria Moderate Urine Mucus Not seen 03/20/21 03/20/21 Range/Units 05:00 05:00 WBC (4.5-11.0) K/uL RBC (3.30-5.50) M/uL Hgb (12.0-15.0) g/dL Hct (36.0-48.0) % MCV (80-98) fL MCH (27-31) pg MCHC (32-36) % Plt Count (150-400) K/uL Add Manual Diff Neutrophils % (Manual) (36-66) % Band Neutrophils % (5-11) % Lymphocytes % (Manual) (24-44) % Monocytes % (Manual) (2-6) % D-Dimer, Quantitative 1088.99 H (0.0-500.0) ng/mL Sodium (140-148) mmol/L Potassium (3.6-5.2) mmol/L Chloride (100-108) mmol/L Carbon Dioxide (21-32) mmol/L Anion Gap (5.0-14.0) mmol/L BUN (7-18) mg/dL Creatinine (0.6-1.0) mg/dL Est Cr Clr Drug Dosing mL/min Estimated GFR (MDRD) (>60) Glucose (74-106) mg/dL Calcium (8.5-10.1) mg/dL Magnesium (1.8-2.4) mg/dL Total Bilirubin (0.2-1.0) mg/dL Direct Bilirubin (0.0-0.2) mg/dL AST (15-37) U/L ALT (12-78) U/L Alkaline Phosphatase (46-116) U/L C-Reactive Protein > 25.00 H (0.0-0.3) mg/dL Total Protein (6.4-8.2) g/dL Albumin (3.4-5.0) g/dL Globulin (2.3-3.5) g/dL Albumin/Globulin Ratio (1.2-2.2) Urine Color (YELLOW) Urine Appearance (CLEAR) Urine pH (5.0-8.0) Ur Specific [place] (1.008-1.030) Urine Protein (NEGATIVE) mg/dL Urine Glucose (UA) (NEGATIVE) mg/dL Urine Ketones (NEGATIVE) mg/dL Urine Occult Blood (NEGATIVE) Urine Nitrite (NEGATIVE) Urine Bilirubin (NEGATIVE) Urine Urobilinogen (0.2-1.0) EU/dL Ur Leukocyte Esterase (NEGATIVE) Urine RBC (0-5) Urine WBC (0-5) Ur Epithelial Cells Amorphous Sediment Urine Bacteria Urine Mucus Roger Results Last 24 Hours: Microbiology 03/19/21 00:15 Aerobic Blood Culture - Preliminary Blood - Venous NO GROWTH AFTER 1 DAY Anaerobic Blood Culture - Preliminary NO GROWTH AFTER 1 DAY 03/19/21 00:31 Aerobic Blood Culture - Preliminary Blood - Venous - Lab Draw NO GROWTH AFTER 1 DAY Anaerobic Blood Culture - Preliminary NO GROWTH AFTER 1 DAY Med Orders - Current: Current Medications Acetaminophen (Acetaminophen 325 Mg Tab) 650 mg PO Q4H PRN PRN Reason: Pain (Mild 1-3)/fever Last Admin: 03/19/21 21:40 Dose: 650 mg Documented by: Albuterol (Albuterol 8 Gm Inhaler) 2 gm INH Q2H PRN PRN Reason: Cough Albuterol/Ipratropium (Albuterol/Ipratropium 4 Gm Inhalation [place]) 1 gm INH QID [facility] Last Admin: 03/20/21 09:51 Dose: 1 puff Documented by: Dexamethasone (Dexamethasone 2 Mg Tab) 6 mg PO Q24H [facility] Last Admin: 03/19/21 17:45 Dose: 6 mg Documented by: Docusate Sodium (Docusate Sodium 100 Mg Cap) 100 mg PO BID PRN PRN Reason: Constipation Enoxaparin Sodium (Enoxaparin 40 Mg/0.4 Ml Syringe) 40 mg SUBCUT Q12H [facility] Last Admin: 03/20/21 05:28 Dose: 40 mg Documented by: Ceftriaxone Sodium 2 gm/ (Sodium Chloride) 50 mls @ 100 mls/hr IV Q24H [facility] Last Admin: 03/20/21 03:11 Dose: 100 mls/hr Documented by: Levofloxacin/Dextrose 750 mg/ (Premix) 150 mls @ 100 mls/hr IV Q24H [facility] Last Admin: 03/19/21 12:01 Dose: 100 mls/hr Documented by: Vancomycin HCl 1 gm/ Sodium (Chloride) 250 mls @ 167 mls/hr IV Q8H [facility] Last Admin: 03/20/21 10:22 Dose: 167 mls/hr Documented by: Remdesivir 100 mg/ Sodium (Chloride) 100 mls @ 100 mls/hr IV Q24H [facility] Stop: 03/22/21 23:59 Last Admin: 03/19/21 22:42 Dose: 100 mls/hr Documented by: Ibuprofen (Ibuprofen 400 Mg Tab) 400 mg PO Q6H PRN PRN Reason: Pain (moderate 4-6) Last Admin: 03/20/21 03:49 Dose: 400 mg Documented by: Lorazepam (Lorazepam 2 Mg/Ml Sdv) 1 mg IV Q6H PRN PRN Reason: Nausea/Vomiting Magnesium Oxide (Magnesium Oxide 400 Mg Tab) 400 mg PO BID [facility] Last Admin: 03/20/21 10:22 Dose: 400 mg Documented by: Melatonin (Melatonin 3 Mg Tab) 6 mg PO BEDTIME PRN PRN Reason: Insomnia Morphine Sulfate (Morphine 2 Mg/Ml Syringe) 2 mg IVPUSH Q2H PRN PRN Reason: Pain (severe 7-10) Ondansetron HCl (Ondansetron 4 Mg Tab.Dis) 4 mg PO Q6H PRN PRN Reason: Nausea able to take PO Last Admin: 03/19/21 08:10 Dose: 4 mg Documented by: Oxycodone HCl (Oxycodone 5 Mg Tab) 5 mg PO Q4H PRN PRN Reason: Pain (moderate 4-6) Sodium Chloride (Sodium Chloride 0.9% 10 Ml Syringe) 10 ml FLUSH ASDIRECTED PRN PRN Reason: Keep Vein Open Discontinued Medications Dexamethasone (Dexamethasone 2 Mg Tab) 6 mg PO DAILY [facility] Last Admin: 03/19/21 01:59 Dose: 6 mg Documented by: Enoxaparin Sodium (Enoxaparin 40 Mg/0.4 Ml Syringe) 40 mg SUBCUT Q12H [facility] Last Admin: 03/19/21 03:31 Dose: 40 mg Documented by: Sodium Chloride (Normal Saline) 1,000 mls @ 999 mls/hr IV ASDIRECTED [facility] Last Admin: 03/18/21 22:15 Dose: 999 mls/hr Documented by: Sodium Chloride (Normal Saline) 100 mls @ 3 mls/sec IV ASDIRECTED [facility] Stop: 03/19/21 10:00 Last Admin: 03/19/21 03:01 Dose: 3 mls/sec Documented by: Remdesivir 200 mg/ Sodium (Chloride) 250 mls @ 250 mls/hr IV ONETIME ONE Stop: 03/19/21 00:00 Last Admin: 03/19/21 02:02 Dose: 250 mls/hr Documented by: Vancomycin HCl 1.5 gm/ Sodium (Chloride) 250 mls @ 150 mls/hr IV Q12H [facility] Last Admin: 03/19/21 04:34 Dose: 150 mls/hr Documented by: Vancomycin HCl 1 gm/ Sodium (Chloride) 250 mls @ 167 mls/hr IV Q8HR [facility] Last Admin: 03/19/21 16:23 Dose: Not Given Documented by: Magnesium Sulfate 2 gm/ Premix 50 mls @ 25 mls/hr IV Q6H [facility] Stop: 03/19/21 19:59 Last Admin: 03/19/21 18:32 Dose: 25 mls/hr Documented by: Remdesivir 100 mg/ Sodium (Chloride) 100 mls @ 100 mls/hr IV Q24H [facility] Stop: 03/22/21 17:59 Influenza Virus Vaccine (Pharmacy To Dose - Influenza Vaccine) 1 each IM ONETIME ONE Stop: 03/19/21 10:01 Influenza Virus Vaccine (Flu Vacc [id number](6mos Up)/Pf 60 Mcg/0.5 Ml Syringe) 60 mcg IM .ONCE ONE Stop: 03/19/21 09:01 Last Admin: 03/19/21 08:15 Dose: Not Given Documented by: Iopamidol (Iopamidol 755 Mg/Ml 100 Ml Bottle) 100 ml IV . DIRECTED [facility] Stop: 03/19/21 10:00 Last Admin: 03/19/21 03:00 Dose: 100 ml Documented by: Ondansetron HCl (Ondansetron 4 Mg/2 Ml Sdv) 4 mg IVPUSH ONETIME ONE Stop: 03/18/21 21:37 Last Admin: 03/18/21 22:12 Dose: 4 mg Documented by: Sodium Chloride (Sodium Chloride 0.9% 10 Ml Syringe) 10 ml FLUSH ASDIRECTED PRN PRN Reason: Keep Vein Open Last Admin: 03/18/21 22:12 Dose: 10 ml Documented by: Sodium Chloride (Sodium Chloride 0.9% 10 Ml Syringe) 10 ml FLUSH ONETIME ONE Stop: 03/18/21 23:50 Last Admin: 03/19/21 03:01 Dose: 10 ml Documented by: - Exam Quality Assessment: Supplemental Oxygen, DVT Prophylaxis General: Alert, Oriented, Cooperative, Mild Distress Lungs: Rales. No: Crackles, Rhonchi, Wheezing Cardiovascular: Regular Rate, Regular Rhythm, No Murmurs GI/Abdominal Exam: Soft, Non-Tender, No Organomegaly, No Distention Extremities: Non-Tender, No Pedal Edema - Patient Data Lab Results Last 24 hrs: Laboratory Results - last 24 hr 03/18/21 03/20/21 03/20/21 Range/Units 23:49 05:00 05:00 WBC 8.3 (4.5-11.0) K/uL RBC 4.33 (3.30-5.50) M/uL Hgb 12.5 (12.0-15.0) g/dL Hct 36.3 (36.0-48.0) % MCV 84 (80-98) fL MCH 29 (27-31) pg MCHC 34 (32-36) % Plt Count 239 (150-400) K/uL Add Manual Diff Yes Neutrophils % (Manual) 79 H (36-66) % Band Neutrophils % 10 (5-11) % Lymphocytes % (Manual) 8 L (24-44) % Monocytes % (Manual) 3 (2-6) % D-Dimer, Quantitative (0.0-500.0) ng/mL Sodium 139 L (140-148) mmol/L Potassium 3.9 (3.6-5.2) mmol/L Chloride 102 (100-108) mmol/L Carbon Dioxide 27 (21-32) mmol/L Anion Gap 13.9 (5.0-14.0) mmol/L BUN 14 (7-18) mg/dL Creatinine 0.7 (0.6-1.0) mg/dL Est Cr Clr Drug Dosing 96.01 mL/min Estimated GFR (MDRD) > 60 (>60) Glucose 123 H (74-106) mg/dL Calcium 7.9 L (8.5-10.1) mg/dL Magnesium 2.5 H D (1.8-2.4) mg/dL Total Bilirubin 0.2 (0.2-1.0) mg/dL Direct Bilirubin 0.12 (0.0-0.2) mg/dL AST 29 (15-37) U/L ALT 47 (12-78) U/L Alkaline Phosphatase 87 (46-116) U/L C-Reactive Protein (0.0-0.3) mg/dL Total Protein 5.0 L (6.4-8.2) g/dL Albumin 1.9 L (3.4-5.0) g/dL Globulin 3.1 (2.3-3.5) g/dL Albumin/Globulin Ratio 0.6 L (1.2-2.2) Urine Color Yellow (YELLOW) Urine Appearance Slightly cloudy A (CLEAR) Urine pH 6.0 (5.0-8.0) Ur Specific [place] 1.010 (1.008-1.030) Urine Protein 30 H (NEGATIVE) mg/dL Urine Glucose (UA) Negative (NEGATIVE) mg/dL Urine Ketones Negative (NEGATIVE) mg/dL Urine Occult Blood Trace-intact H (NEGATIVE) Urine Nitrite Negative (NEGATIVE) Urine Bilirubin Negative (NEGATIVE) Urine Urobilinogen 0.2 (0.2-1.0) EU/dL Ur Leukocyte Esterase Negative (NEGATIVE) Urine RBC 0-5 (0-5) Urine WBC 0-5 (0-5) Ur Epithelial Cells Few Amorphous Sediment Moderate Urine Bacteria Moderate Urine Mucus Not seen 03/20/21 03/20/21 Range/Units 05:00 05:00 WBC (4.5-11.0) K/uL RBC (3.30-5.50) M/uL Hgb (12.0-15.0) g/dL Hct (36.0-48.0) % MCV (80-98) fL MCH (27-31) pg MCHC (32-36) % Plt Count (150-400) K/uL Add Manual Diff Neutrophils % (Manual) (36-66) % Band Neutrophils % (5-11) % Lymphocytes % (Manual) (24-44) % Monocytes % (Manual) (2-6) % D-Dimer, Quantitative 1088.99 H (0.0-500.0) ng/mL Sodium (140-148) mmol/L Potassium (3.6-5.2) mmol/L Chloride (100-108) mmol/L Carbon Dioxide (21-32) mmol/L Anion Gap (5.0-14.0) mmol/L BUN (7-18) mg/dL Creatinine (0.6-1.0) mg/dL Est Cr Clr Drug Dosing mL/min Estimated GFR (MDRD) (>60) Glucose (74-106) mg/dL Calcium (8.5-10.1) mg/dL Magnesium (1.8-2.4) mg/dL Total Bilirubin (0.2-1.0) mg/dL Direct Bilirubin (0.0-0.2) mg/dL AST (15-37) U/L ALT (12-78) U/L Alkaline Phosphatase (46-116) U/L C-Reactive Protein > 25.00 H (0.0-0.3) mg/dL Total Protein (6.4-8.2) g/dL Albumin (3.4-5.0) g/dL Globulin (2.3-3.5) g/dL Albumin/Globulin Ratio (1.2-2.2) Urine Color (YELLOW) Urine Appearance (CLEAR) Urine pH (5.0-8.0) Ur Specific [place] (1.008-1.030) Urine Protein (NEGATIVE) mg/dL Urine Glucose (UA) (NEGATIVE) mg/dL Urine Ketones (NEGATIVE) mg/dL Urine Occult Blood (NEGATIVE) Urine Nitrite (NEGATIVE) Urine Bilirubin (NEGATIVE) Urine Urobilinogen (0.2-1.0) EU/dL Ur Leukocyte Esterase (NEGATIVE) Urine RBC (0-5) Urine WBC (0-5) Ur Epithelial Cells Amorphous Sediment Urine Bacteria Urine Mucus Result Diagrams: 03/20/21 05:00 03/20/21 05:00 Roger Results Last 24 hrs: Microbiology 03/19/21 00:15 Aerobic Blood Culture - Preliminary Blood - Venous NO GROWTH AFTER 1 DAY Anaerobic Blood Culture - Preliminary NO GROWTH AFTER 1 DAY 03/19/21 00:31 Aerobic Blood Culture - Preliminary Blood - Venous - Lab Draw NO GROWTH AFTER 1 DAY Anaerobic Blood Culture - Preliminary NO GROWTH AFTER 1 DAY Sepsis Event Note - Evaluation Sepsis Screening Result: No Definite Risk - Focused Exam Vital Signs: Vital Signs Temp Pulse Resp BP Pulse Ox 03/20/21 07:30 92 L 03/20/21 07:00 96.2 F L 92 16 114/68 91 L 03/20/21 03:17 95.5 F L 90 17 107/58 L 91 L 03/20/21 01:21 95 03/19/21 23:07 82 18 91 L - Problem List Review Problem List Initiated/Reviewed/Updated: Yes - My Orders Last 24 Hours: My Active Orders 03/19/21 11:00 Levofloxacin/Dextrose 5%-Water [Levaquin in D5W 750 MG/150 ML] 750 mg Premix Bag 1 bag IV Q24H 03/19/21 16:31 Ibuprofen [Motrin] 400 mg PO Q6H PRN 03/19/21 17:00 Magnesium Oxide 400 mg PO BID 03/19/21 23:00 Remdesivir 100 mg Sodium Chloride 0.9% [Normal Saline] 100 ml IV Q24H 03/21/21 05:00 BASIC METABOLIC PANEL,BMP [CHEM] Timed CBC WITH AUTO DIFF [HEME] Timed - Plan Plan:: ASSESSMENT AND PLAN COVID-19 pneumonia-complicated by hypoxia and bacterial pneumonia. She has not been vaccinated. Tested positive on March 18 at [place] but has been sick for 10 days. Elevation of D-dimer 800.94 -IV Remdesivir 400 mg given in the emergency department, followed by 200 mg daily for 4 days, today is day 3 of 5 -PO Dexamethasone 6 mg daily, today is day 3 -Supplement oxygen as needed -Symptomatic management of cough -albuterol inhaler 2 puffs every 2 hours as needed for cough -albuterol - atrovent inhaler 1 puff 4 times a day scheduled -Goal of negative fluid balance each day -Isolation precautions Bacterial pneumonia left lung-complicating COVID-19 infection. Evidence of more dense consolidation of the left lung on CT scan, procalcitonin level elevated. Probable component of sepsis. -Saline lock IV -Blood cultures pending -Because of associated sepsis broad-spectrum IV antibiotic therapy; vancomycin, ceftriaxone, levofloxacin, pending culture results Legal Blindness -orient to room -at risk for falls, tripping or slips -call light Maintenance issues - -DVT prophylaxis-enoxaparin 40 mg subcut bid -GI prophylaxis-not indicated -Nutrition-regular -Cardona catheter-not indicated CODE STATUS: FULL Admission status: Admit to 2ND Floor Med-Surg Admission justification. This patient will be admitted for inpatient services and is medically appropriate meeting medical necessity for inpatient admission as outlined in my documentation. I reasonably expect the patient will require inpatient services that span. Time over 2 midnights. I reasonably expect this patient to be discharged or transf erred within 96 hours after admission to the critical access hospital. Disposition: home with family Primary care provider: Dr. Garcia, [facility] Hospitalist: Dr. Goel
[2021-03-20] MEDS: Levofloxacin/Dextrose 5%-Water 750 MG in Premix Bag 1 BAG IV SCH (13:11)
[2021-03-20] MEDS: Dexamethasone 2 MG Tab PO SCH (17:37)
[2021-03-20] MEDS: REMDESIVIR 100 MG in Sodium Chloride 0.9% 100 ML IV SCH (22:08)
[2021-03-21] MEDS: cefTRIAXone 2 GM in Sodium Chloride 0.9% 50 ML IV SCH (02:33)
[2021-03-21] MEDS: Enoxaparin 40 MG/0.4 ML Syringe SUBCUT SCH (04:47)
[2021-03-21] MEDS: Albuterol/Ipratropium 4 GM Inhalation Spray INH SCH ×2 (05:00→09:59)
[2021-03-21 08:54] VITALS: BP 118/66; PULSE 57
[2021-03-21] MEDS: Magnesium Oxide 400 MG Tab PO SCH (09:59)
--- NOTE | 2021-03-21 11:11 | PCM.DCSUM1 ---
Discharge Summary - Hospital Course Brief History: Ms. Parisi is a 45-year-old woman who was admitted through the emergency department with progressive weakness, shortness of breath, and hypoxia, secondary to COVID-19 infection with pneumonia, as well as bacterial pneumonia of the left lung. - Discharge Data Discharge Date: 03/21/21 Discharge Disposition: Home, Self-Care 01 Condition: Fair - Referral to Home Health Primary Care Physician: Janusz Garcia MD - Discharge Diagnosis/Problem(s) (1) Pneumonia due to 2019 novel coronavirus SNOMED Code(s): 682362636389430855 ICD Code: U07.1 - COVID-19; J12.82 - PNEUMONIA DUE TO CORONAVIRUS DISEASE 2019 Status: Acute Priority: High Current Visit: Yes (2) COVID-19 SNOMED Code(s): 130341028 ICD Code: U07.1 - COVID-19 Status: Acute Priority: High Current Visit: Yes (3) Hypoxia SNOMED Code(s): 662820502 ICD Code: R09.02 - HYPOXEMIA Status: Acute Priority: High Current Visit: Yes (4) Left lower lobe pneumonia SNOMED Code(s): 765937470 ICD Code: J18.9 - PNEUMONIA, UNSPECIFIED ORGANISM Status: Acute Priority: High Current Visit: Yes Qualifiers: Pneumonia type: due to unspecified organism Qualified Code(s): J18.9 - Pneumonia, unspecified organism - Patient Summary/Data Hospital Course: Ms. Parisi is a 45 year old female who presented to the ER with , reports has been sick for 10 days- body aches, fever, chills, cough, loss of appetite, nausea, vomiting, diarrhea. She was seen in [facility] on Mar 16 for same symptoms- was not tested for Covid- discharge to home with John. She came to ER today because her was monitoring her oxygen level and it was noted to be 80%. She has weakness, cough and shortness of breath. White blood cell count was found to be low and chest x-ray showed evidence of bilateral pulmonary infiltrates. Covid testing did return positive. Because of hypoxia CT scan of the chest was obtained, this did show patchy infiltrate in the right lung field consistent with COVID-19 infection. On the left there was more dense consolidation consistent with underlying bacterial infection. Procalcitonin level was obtained and found to be elevated consistent with bacterial infection. Because of probable pneumonia and associated sepsis she was started on broad-spectrum IV antibiotic therapy with vancomycin, ceftriaxone, and levofloxacin. She was not given aggressive fluid replacement for sepsis because of the underlying Covid infection. She was treated with supplemental oxygen as needed and also started on a course of dexamethasone and remdesivir for management of COVID-19 infection. She did well over the next few days of hospital stay and by the time of discharge had not required supplemental oxygen for period of 24 hours. White blood cell count normalized and she was feeling significantly improved with better appetite and overall strength. She will be discharged home on oral antibiotic therapy with levofloxacin for an additional 4 days. Activity will be as tolerated and she will resume her usual diet. She is instructed to self isolate for an additional 7 days. It is recommended that she receive COVID-19 vaccination in 3 months. Follow-up appointment will be scheduled with her primary care provider within 1 week. - Patient Instructions Diet: Usual Diet as Tolerated Activity: As Tolerated Other/Special Instructions: Patient instructed to self isolate for additional 7 days. COVID-19 vaccination recommended in 3 months. Follow-up appointment with primary care provider within 1 week. - Discharge Plan *PRESCRIPTION DRUG MONITORING PROGRAM REVIEWED*: Not Applicable *COPY OF PRESCRIPTION DRUG MONITORING REPORT IN PATIENT ESTEVAN: Not Applicable Prescriptions/Med Rec: levoFLOXacin [Levaquin] 750 mg PO DAILY #4 tab Home Medications: Home Meds Ondansetron [Zofran ODT] 4 mg PO Q6H PRN 03/18/21 [History] levoFLOXacin [Levaquin] 750 mg PO DAILY #4 tab 03/21/21 [Rx] Referrals: Janusz Garcia MD [Primary Care Provider] - 03/29/21 1:40 pm - Discharge Summary/Plan Comment DC Time >30 min.: No Total # of Minutes for Discharge Time: 15 - Patient Data Vitals - Most Recent: Last Vital Signs Temp 96.6 F L 03/21/21 08:00 Pulse 57 L 03/21/21 08:00 Resp 16 03/21/21 08:00 BP 118/66 03/21/21 08:00 Pulse Ox 92 L 03/21/21 08:00 Weight - Most Recent: 152 lb I&O - Last 24 hours: Intake & Output 03/20/21 03/21/21 03/21/21 22:59 06:59 14:59 Intake Total 1640 1200 Output Total 1 Balance 1640 1200 -1 Lab Results - Last 24 hrs: Laboratory Results - last 24 hr 03/21/21 03/21/21 03/21/21 Range/Units 04:40 04:40 04:40 WBC 7.7 (4.5-11.0) K/uL RBC 4.39 (3.30-5.50) M/uL Hgb 12.6 (12.0-15.0) g/dL Hct 37.1 (36.0-48.0) % MCV 85 (80-98) fL MCH 29 (27-31) pg MCHC 34 (32-36) % Plt Count 279 (150-400) K/uL Add Manual Diff Yes Neutrophils % (Manual) 80 H (36-66) % Band Neutrophils % 3 L (5-11) % Lymphocytes % (Manual) 10 L (24-44) % Monocytes % (Manual) 7 H (2-6) % Sodium 140 (140-148) mmol/L Potassium 4.4 (3.6-5.2) mmol/L Chloride 104 (100-108) mmol/L Carbon Dioxide 27 (21-32) mmol/L Anion Gap 9.4 (5.0-14.0) mmol/L BUN 20 H (7-18) mg/dL Creatinine 0.7 (0.6-1.0) mg/dL Est Cr Clr Drug Dosing 96.01 mL/min Estimated GFR (MDRD) > 60 (>60) Glucose 144 H (74-106) mg/dL Calcium 7.7 L (8.5-10.1) mg/dL Total Bilirubin 0.1 L (0.2-1.0) mg/dL Direct Bilirubin 0.10 (0.0-0.2) mg/dL Indirect Bilirubin 0 AST 26 (15-37) U/L ALT 41 (12-78) U/L Alkaline Phosphatase 90 (46-116) U/L Total Protein 5.1 L (6.4-8.2) g/dL Albumin 1.9 L (3.4-5.0) g/dL Globulin 3.2 (2.3-3.5) g/dL Albumin/Globulin Ratio 0.6 L (1.2-2.2) Vancomycin Trough (10.0-20.0) ug/mL 03/21/21 Range/Units 08:35 WBC (4.5-11.0) K/uL RBC (3.30-5.50) M/uL Hgb (12.0-15.0) g/dL Hct (36.0-48.0) % MCV (80-98) fL MCH (27-31) pg MCHC (32-36) % Plt Count (150-400) K/uL Add Manual Diff Neutrophils % (Manual) (36-66) % Band Neutrophils % (5-11) % Lymphocytes % (Manual) (24-44) % Monocytes % (Manual) (2-6) % Sodium (140-148) mmol/L Potassium (3.6-5.2) mmol/L Chloride (100-108) mmol/L Carbon Dioxide (21-32) mmol/L Anion Gap (5.0-14.0) mmol/L BUN (7-18) mg/dL Creatinine (0.6-1.0) mg/dL Est Cr Clr Drug Dosing mL/min Estimated GFR (MDRD) (>60) Glucose (74-106) mg/dL Calcium (8.5-10.1) mg/dL Total Bilirubin (0.2-1.0) mg/dL Direct Bilirubin (0.0-0.2) mg/dL Indirect Bilirubin AST (15-37) U/L ALT (12-78) U/L Alkaline Phosphatase (46-116) U/L Total Protein (6.4-8.2) g/dL Albumin (3.4-5.0) g/dL Globulin (2.3-3.5) g/dL Albumin/Globulin Ratio (1.2-2.2) Vancomycin Trough 10.9 (10.0-20.0) ug/mL CHARIS Results - Last 24 hrs: Microbiology 03/19/21 00:15 Aerobic Blood Culture - Preliminary Blood - Venous NO GROWTH AFTER 2 DAYS Anaerobic Blood Culture - Preliminary NO GROWTH AFTER 2 DAYS 03/19/21 00:31 Aerobic Blood Culture - Preliminary Blood - Venous - Lab Draw NO GROWTH AFTER 2 DAYS Anaerobic Blood Culture - Preliminary NO GROWTH AFTER 2 DAYS Med Orders - Current: Current Medications Acetaminophen (Acetaminophen 325 Mg Tab) 650 mg PO Q4H PRN PRN Reason: Pain (Mild 1-3)/fever Last Admin: 03/19/21 21:40 Dose: 650 mg Documented by: Albuterol (Albuterol 8 Gm Inhaler) 2 gm INH Q2H PRN PRN Reason: Cough Albuterol/Ipratropium (Albuterol/Ipratropium 4 Gm Inhalation [place]) 1 gm INH QID [facility] Last Admin: 03/21/21 09:59 Dose: 1 puff Documented by: Dexamethasone (Dexamethasone 2 Mg Tab) 6 mg PO Q24H [facility] Last Admin: 03/20/21 17:37 Dose: 6 mg Documented by: Docusate Sodium (Docusate Sodium 100 Mg Cap) 100 mg PO BID PRN PRN Reason: Constipation Enoxaparin Sodium (Enoxaparin 40 Mg/0.4 Ml Syringe) 40 mg SUBCUT Q12H [facility] Last Admin: 03/21/21 04:47 Dose: 40 mg Documented by: Ceftriaxone Sodium 2 gm/ (Sodium Chloride) 50 mls @ 100 mls/hr IV Q24H [facility] Last Admin: 03/21/21 02:33 Dose: 100 mls/hr Documented by: Levofloxacin/Dextrose 750 mg/ (Premix) 150 mls @ 100 mls/hr IV Q24H [facility] Last Admin: 03/20/21 13:11 Dose: 100 mls/hr Documented by: Vancomycin HCl 1 gm/ Sodium (Chloride) 250 mls @ 167 mls/hr IV Q8H [facility] Last Admin: 03/21/21 09:59 Dose: 167 mls/hr Documented by: Remdesivir 100 mg/ Sodium (Chloride) 100 mls @ 100 mls/hr IV Q24H [facility] Stop: 03/22/21 23:59 Last Admin: 03/20/21 22:08 Dose: 100 mls/hr Documented by: Ibuprofen (Ibuprofen 400 Mg Tab) 400 mg PO Q6H PRN PRN Reason: Pain (moderate 4-6) Last Admin: 03/20/21 22:24 Dose: 400 mg Documented by: Lorazepam (Lorazepam 2 Mg/Ml Sdv) 1 mg IV Q6H PRN PRN Reason: Nausea/Vomiting Magnesium Oxide (Magnesium Oxide 400 Mg Tab) 400 mg PO BID [facility] Last Admin: 03/21/21 09:59 Dose: 400 mg Documented by: Melatonin (Melatonin 3 Mg Tab) 6 mg PO BEDTIME PRN PRN Reason: Insomnia Last Admin: 03/20/21 22:23 Dose: 6 mg Documented by: Morphine Sulfate (Morphine 2 Mg/Ml Syringe) 2 mg IVPUSH Q2H PRN PRN Reason: Pain (severe 7-10) Ondansetron HCl (Ondansetron 4 Mg Tab.Dis) 4 mg PO Q6H PRN PRN Reason: Nausea able to take PO Last Admin: 03/19/21 08:10 Dose: 4 mg Documented by: Oxycodone HCl (Oxycodone 5 Mg Tab) 5 mg PO Q4H PRN PRN Reason: Pain (moderate 4-6) Sodium Chloride (Sodium Chloride 0.9% 10 Ml Syringe) 10 ml FLUSH ASDIRECTED PRN PRN Reason: Keep Vein Open Discontinued Medications Dexamethasone (Dexamethasone 2 Mg Tab) 6 mg PO DAILY [facility] Last Admin: 03/19/21 01:59 Dose: 6 mg Documented by: Enoxaparin Sodium (Enoxaparin 40 Mg/0.4 Ml Syringe) 40 mg SUBCUT Q12H [facility] Last Admin: 03/19/21 03:31 Dose: 40 mg Documented by: Sodium Chloride (Normal Saline) 1,000 mls @ 999 mls/hr IV ASDIRECTED [facility] Last Admin: 03/18/21 22:15 Dose: 999 mls/hr Documented by: Sodium Chloride (Normal Saline) 100 mls @ 3 mls/sec IV ASDIRECTED [facility] Stop: 03/19/21 10:00 Last Admin: 03/19/21 03:01 Dose: 3 mls/sec Documented by: Remdesivir 200 mg/ Sodium (Chloride) 250 mls @ 250 mls/hr IV ONETIME ONE Stop: 03/19/21 00:00 Last Admin: 03/19/21 02:02 Dose: 250 mls/hr Documented by: Vancomycin HCl 1.5 gm/ Sodium (Chloride) 250 mls @ 150 mls/hr IV Q12H [facility] Last Admin: 03/19/21 04:34 Dose: 150 mls/hr Documented by: Vancomycin HCl 1 gm/ Sodium (Chloride) 250 mls @ 167 mls/hr IV Q8HR [facility] Last Admin: 03/19/21 16:23 Dose: Not Given Documented by: Magnesium Sulfate 2 gm/ Premix 50 mls @ 25 mls/hr IV Q6H [facility] Stop: 03/19/21 19:59 Last Admin: 03/19/21 18:32 Dose: 25 mls/hr Documented by: Remdesivir 100 mg/ Sodium (Chloride) 100 mls @ 100 mls/hr IV Q24H [facility] Stop: 03/22/21 17:59 Influenza Virus Vaccine (Pharmacy To Dose - Influenza Vaccine) 1 each IM ONETIME ONE Stop: 03/19/21 10:01 Influenza Virus Vaccine (Flu Vacc Se8105-50(6mos Up)/Pf 60 Mcg/0.5 Ml Syringe) 60 mcg IM .ONCE ONE Stop: 03/19/21 09:01 Last Admin: 03/19/21 08:15 Dose: Not Given Documented by: Iopamidol (Iopamidol 755 Mg/Ml 100 Ml Bottle) 100 ml IV . DIRECTED OMKAR Stop: 03/19/21 10:00 Last Admin: 03/19/21 03:00 Dose: 100 ml Documented by: Ondansetron HCl (Ondansetron 4 Mg/2 Ml Sdv) 4 mg IVPUSH ONETIME ONE Stop: 03/18/21 21:37 Last Admin: 03/18/21 22:12 Dose: 4 mg Documented by: Sodium Chloride (Sodium Chloride 0.9% 10 Ml Syringe) 10 ml FLUSH ASDIRECTED PRN PRN Reason: Keep Vein Open Last Admin: 03/18/21 22:12 Dose: 10 ml Documented by: Sodium Chloride (Sodium Chloride 0.9% 10 Ml Syringe) 10 ml FLUSH ONETIME ONE Stop: 03/18/21 23:50 Last Admin: 03/19/21 03:01 Dose: 10 ml Documented by: - Exam General: Reports: Alert, Oriented, Cooperative, Mild Distress Lungs: Reports: Normal Respiratory Effort, Decreased Breath Sounds (Left base). Denies: Rales, Rhonchi, Wheezing Cardiovascular: Reports: Regular Rate, Regular Rhythm, No Murmurs GI/Abdominal Exam: Soft, Non-Tender, No Organomegaly, No Distention Extremities: Non-Tender, No Pedal Edema
[2021-03-21] MEDS: Levofloxacin/Dextrose 5%-Water 750 MG in Premix Bag 1 BAG IV SCH (11:45)
== END 2021-03-21 14:42 | disposition home or self-care (01) | DRG 871 ==
LOC: JP.ED 21:25 → JP.2SS 23:43
PROVIDERS: ADMIT Hospitalist; ATTEND Hospitalist
PROC: 8E0ZXY6 Isolation (ICD-10-PCS; principal; 2021-03-18)
PROC: 3E0DX3Z Introduction of Anti-inflammatory into Mouth and Pharynx, External Approach (ICD-10-PCS; principal; 2021-03-18)
PROC: XW033E5 Introduction of Remdesivir Anti-infective into Peripheral Vein, Percutaneous Approach, New Technology Group 5 (ICD-10-PCS; principal; 2021-03-18)
DX: A41.89 Other specified sepsis (principal); U07.1 COVID-19; J12.82 Pneumonia due to coronavirus disease 2019; J15.9 Unspecified bacterial pneumonia; H54.7 Unspecified visual loss; Z20.822 Contact with and (suspected) exposure to COVID-19
CPT/HCPCS: 36415; 71045; 71045-26; 71275; 80048; 80053; 80076; 80202; 81001; 82248; 82728; 83605; 83615; 83735; 84145; 85025; 85379; 85610; 86140; 87040; 94640; 94762; 96374; 99285-25; A9270-GY; J0696; J1650; J1956; J2405; J3370; J3475; J7030; J7050; J8540; Q9967; U0002

== ENCOUNTER 2021-03-22 16:25 | Emergency (ER) | payer OTHER, MEDICAID, MEDICARE ==
--- NOTE | 2021-03-22 17:41 | EDM.PDOC ---
<OfficerIsmael - Last Filed: 03/22/21 17:36> ED HPI GENERAL MEDICAL PROBLEM - General Chief Complaint: Respiratory Problem Stated Complaint: fever, sob, chills, chest congestion Time Seen by Provider: 03/22/21 17:24 Source of Information: Reports: Patient, Old Records, RN Notes Reviewed History Limitations: Reports: No Limitations - History of Present Illness INITIAL COMMENTS - FREE TEXT/NARRATIVE: 45-year-old female presents emergency department today with complaint of increasing shortness of breath and fever. She was recently admitted to hospital with COVID-19 hypoxia as well as bacterial pneumonia per CT scan. Yesterday she was discharged states she felt pretty good with breathing okay however over the last 24 hours she has developed fever increasing shortness of breath - Related Data Allergies Allergy/AdvReac Type Severity Reaction Status Date / Time No Known Allergies Allergy Verified 03/22/21 17:03 Home Meds: Home Meds Ondansetron [Zofran ODT] 4 mg PO Q6H PRN 03/18/21 [History] levoFLOXacin [Levaquin] 750 mg PO DAILY #4 tab 03/21/21 [Rx] Past Medical History HEENT History: Reports: Impaired Vision, Other (See Below) Other HEENT History: Retinitis pigmintosa (RP) [employer] History: Reports: , Spontaneous - Infectious Disease History Infectious Disease History: Reports: Chicken Pox Social & Family History - Family History Family Medical History: Unobtainable - Tobacco Use Tobacco Use Status *Q: Never Tobacco User - Caffeine Use Caffeine Use: Reports: Coffee - Recreational Drug Use Recreational Drug Use: No - Living Situation & Occupation Living situation: Reports: , with Family (lives with Vikram, 11 children ages 2 years to 21 years. home is in [place], [place].) ED ROS GENERAL - Review of Systems Review Of Systems: See Below Constitutional: Reports: Fever, Weakness, Fatigue HEENT: Reports: No Symptoms Respiratory: Reports: Shortness of Breath Cardiovascular: Reports: Dyspnea on Exertion GI/Abdominal: Reports: No Symptoms ED EXAM, GENERAL - Physical Exam Exam: See Below Exam Limited By: No Limitations General Appearance: Alert, WD/WN, No Apparent Distress Respiratory/Chest: No Respiratory Distress, No Accessory Muscle Use, Chest Non- Tender, Rhonchi, Wheezing Cardiovascular: Regular Rate, Rhythm, No Murmur Departure - Departure Disposition: Home, Self-Care 01 Clinical Impression: Pneumonia due to COVID-19 virus - Discharge Information Instructions: COVID-19 Referrals: Janusz Garcia MD [Primary Care Provider] - Forms: ED Department Discharge Care Plan Goals: Take 6 pills of prednisone with food with your first meal of the day for the next 5 consecutive days. Continue your other regular medications including your antibiotic. Incentive spirometry will be helpful in healing your lungs, and if you feel oxygen is helpful and you have some available use as needed. Increase activity as tolerated. Recheck as scheduled for your post hospital follow-up. Sepsis Event Note (ED) - Evaluation Sepsis Screening Result: No Definite Risk <Cody Fowler - Last Filed: 03/23/21 03:42> Course - Vital Signs Last Recorded V/S: Last Vital Signs Temp 97.5 F 03/22/21 21:20 Pulse 87 03/22/21 22:34 Resp 24 H 03/22/21 22:34 BP 122/74 03/22/21 21:20 Pulse Ox 93 L 03/22/21 22:34 - Orders/Labs/Meds Labs: Laboratory Tests 03/22/21 03/22/21 03/22/21 Range/Units 17:53 17:56 17:56 WBC 8.7 (4.5-11.0) K/uL RBC 4.48 (3.30-5.50) M/uL Hgb 12.7 (12.0-15.0) g/dL Hct 38.2 (36.0-48.0) % MCV 85 (80-98) fL MCH 28 (27-31) pg MCHC 33 (32-36) % Plt Count 372 (150-400) K/uL Add Manual Diff Yes Neutrophils % (Manual) 70 H (36-66) % Band Neutrophils % 2 L (5-11) % Lymphocytes % (Manual) 15 L (24-44) % Monocytes % (Manual) 12 H (2-6) % Eosinophils % (Manual) 1 L (2-4) % Atypical Lymphocytes Few D-Dimer, Quantitative 1829.58 H (0.0-500.0) ng/mL Sodium 135 L (140-148) mmol/L Potassium 3.3 L (3.6-5.2) mmol/L Chloride 100 (100-108) mmol/L Carbon Dioxide 28 (21-32) mmol/L Anion Gap 10.3 (5.0-14.0) mmol/L BUN 13 (7-18) mg/dL Creatinine 0.7 (0.6-1.0) mg/dL Est Cr Clr Drug Dosing 96.01 mL/min Estimated GFR (MDRD) > 60 (>60) Glucose 104 (74-106) mg/dL Lactic Acid (0.4-2.0) mmol/L Calcium 7.8 L (8.5-10.1) mg/dL Total Bilirubin 0.3 D (0.2-1.0) mg/dL AST 29 (15-37) U/L ALT 50 (12-78) U/L Alkaline Phosphatase 79 (46-116) U/L Troponin I (0.000-0.056) ng/mL C-Reactive Protein 5.10 H (0.0-0.3) mg/dL Total Protein 5.7 L (6.4-8.2) g/dL Albumin 1.9 L (3.4-5.0) g/dL Globulin 3.8 H (2.3-3.5) g/dL Albumin/Globulin Ratio 0.5 L (1.2-2.2) Procalcitonin ng/mL 03/22/21 03/22/21 03/22/21 Range/Units 17:56 17:56 17:56 WBC (4.5-11.0) K/uL RBC (3.30-5.50) M/uL Hgb (12.0-15.0) g/dL Hct (36.0-48.0) % MCV (80-98) fL MCH (27-31) pg MCHC (32-36) % Plt Count (150-400) K/uL Add Manual Diff Neutrophils % (Manual) (36-66) % Band Neutrophils % (5-11) % Lymphocytes % (Manual) (24-44) % Monocytes % (Manual) (2-6) % Eosinophils % (Manual) (2-4) % Atypical Lymphocytes D-Dimer, Quantitative (0.0-500.0) ng/mL Sodium (140-148) mmol/L Potassium (3.6-5.2) mmol/L Chloride (100-108) mmol/L Carbon Dioxide (21-32) mmol/L Anion Gap (5.0-14.0) mmol/L BUN (7-18) mg/dL Creatinine (0.6-1.0) mg/dL Est Cr Clr Drug Dosing mL/min Estimated GFR (MDRD) (>60) Glucose (74-106) mg/dL Lactic Acid 2.3 H (0.4-2.0) mmol/L Calcium (8.5-10.1) mg/dL Total Bilirubin (0.2-1.0) mg/dL AST (15-37) U/L ALT (12-78) U/L Alkaline Phosphatase (46-116) U/L Troponin I < 0.017 (0.000-0.056) ng/mL C-Reactive Protein (0.0-0.3) mg/dL Total Protein (6.4-8.2) g/dL Albumin (3.4-5.0) g/dL Globulin (2.3-3.5) g/dL Albumin/Globulin Ratio (1.2-2.2) Procalcitonin 0.10 ng/mL 03/22/21 Range/Units 21:26 WBC (4.5-11.0) K/uL RBC (3.30-5.50) M/uL Hgb (12.0-15.0) g/dL Hct (36.0-48.0) % MCV (80-98) fL MCH (27-31) pg MCHC (32-36) % Plt Count (150-400) K/uL Add Manual Diff Neutrophils % (Manual) (36-66) % Band Neutrophils % (5-11) % Lymphocytes % (Manual) (24-44) % Monocytes % (Manual) (2-6) % Eosinophils % (Manual) (2-4) % Atypical Lymphocytes D-Dimer, Quantitative (0.0-500.0) ng/mL Sodium (140-148) mmol/L Potassium (3.6-5.2) mmol/L Chloride (100-108) mmol/L Carbon Dioxide (21-32) mmol/L Anion Gap (5.0-14.0) mmol/L BUN (7-18) mg/dL Creatinine (0.6-1.0) mg/dL Est Cr Clr Drug Dosing mL/min Estimated GFR (MDRD) (>60) Glucose (74-106) mg/dL Lactic Acid 2.3 H (0.4-2.0) mmol/L Calcium (8.5-10.1) mg/dL Total Bilirubin (0.2-1.0) mg/dL AST (15-37) U/L ALT (12-78) U/L Alkaline Phosphatase (46-116) U/L Troponin I (0.000-0.056) ng/mL C-Reactive Protein (0.0-0.3) mg/dL Total Protein (6.4-8.2) g/dL Albumin (3.4-5.0) g/dL Globulin (2.3-3.5) g/dL Albumin/Globulin Ratio (1.2-2.2) Procalcitonin ng/mL Meds: Medications Discontinued Medications Generic Name Dose Route Start Last Admin Trade Name Freq PRN Reason Stop Dose Admin Dexamethasone 6 mg 03/22/21 21:25 03/22/21 21:59 Dexamethasone 4 Mg/Ml Sdv IVPUSH 03/22/21 21:26 6 mg ONETIME ONE Administration Sodium Chloride 100 mls @ 3 mls/sec 03/22/21 19:15 03/22/21 19:46 Normal Saline IV 3 mls/sec ASDIRECTED OMKAR Administration Iopamidol 100 ml 03/22/21 19:15 03/22/21 19:47 Iopamidol 755 Mg/Ml 100 Ml Bottle IV 100 ml . DIRECTED OMKAR Administration Sodium Chloride 10 ml 03/22/21 19:06 03/22/21 19:47 Sodium Chloride 0.9% 10 Ml Sdv FLUSH 03/22/21 19:07 10 ml ONETIME ONE Administration - Re-Assessments/Exams Free Text/Narrative Re-Assessment/Exam: 03/23/21 03:41 Care accepted from Officer pending a CT angiogram of the chest. Patient continued to complain of shortness of breath despite O2 sats being in the low 90s and no respiratory labor. She did have decreased breath sounds in the left side. CT scan confirmed a persistent left lobar infiltrate but no worse than her CT while hospitalized. No emboli identified. Patient was given 6 mg of IV dexamethasone, and placed on 60 mg of prednisone daily for 5 consecutive days. Also given incentive spirometry according to the patient and her "found her some oxygen". Departure - Departure Time of Disposition: 22:38 Sepsis Event Note (ED) - Focused Exam Vital Signs: Vital Signs Temp Pulse Resp BP Pulse Ox 03/22/21 22:34 87 24 H 93 L 03/22/21 22:00 88 26 H 91 L 03/22/21 21:20 97.5 F 97 25 H 122/74 90 L 03/22/21 20:00 100 113/75 92 L 03/22/21 19:09 99.4 F 101 H 28 H 116/68 92 L 03/22/21 17:00 98.2 F 94 24 H 100/62 94 L
[2021-03-22] MEDS ORDERED: Sodium Chloride 0.9% 10 ML SDV FLUSH ONE (19:06)
[2021-03-22] MEDS ORDERED: Iopamidol 755 Mg/ML 100 ML Bottle IV SCH (19:15)
[2021-03-22] MEDS ORDERED: Sodium Chloride 0.9% 100 ML IV SCH (19:15)
--- NOTE | 2021-03-22 20:39 | CRLCT ---
For Patients: As a result of the Century Cures Act, medical imaging exams and procedure reports are released immediately into your electronic medical record. You may view this report before your referring provider. If you have questions, please contact your health care provider. INDICATION: COVID-19 increasing shortness of breath TECHNIQUE: CT chest with i.v. contrast using pulmonary angiographic technique. Coronal and sagittal reformats were obtained. CONTRAST: 50 mL Isovue 370 COMPARISON: 03/19/2021 FINDINGS: Cardiovascular: The pulmonary arteries are unremarkable in enhancement with no evidence of acute pulmonary embolism. The heart has an unremarkable appearance and size. No sign of aneurysm in the thoracic aorta. Mediastinum: No mass or adenopathy seen. Lung: Patchy subpleural consolidation and ground-glass opacities are present in the lower lobes bilaterally with small bilateral pleural effusions. Lobar consolidation of the left upper lobe and lingula are present with air bronchograms. Pleura and pericardium: See above. No significant pericardial effusion is present. Chest wall and axilla: No mass or adenopathy seen. Bone: Unremarkable for age. Upper abdomen: Unremarkable. IMPRESSIONS: 1. No CT evidence of acute pulmonary emboli seen. 2. Patchy subpleural consolidation and ground-glass opacities are present in the lower lobes bilaterally with small bilateral pleural effusions. Findings are likely due to COVID-19 infection with organizing pneumonia. 3. Lobar consolidation of the left upper lobe and lingula are present with air bronchograms. The appearance is similar to prior examination and may be due to superimposed lobar pneumonia. Dictated by Prabhjot Garcia MD @ 03/22/2021 8:36:31 PM Please note that all CT scans at this facility use dose modulation, iterative reconstruction, and/or weight-based dosing when appropriate to reduce radiation dose to as low as reasonably achievable. Dictated by: Prabhjot Garcia MD @ 03/22/2021 20:36:37 (Electronically Signed)
[2021-03-22 21:25] VITALS: BP 122/74
[2021-03-22] MEDS ORDERED: Dexamethasone 4 MG/ML SDV IVPUSH ONE (21:25)
[2021-03-22 22:35] VITALS: PULSE 87
== END 2021-03-22 22:55 | disposition home or self-care (01) ==
LOC: JP.ED 16:25
DX: U07.1 COVID-19 (principal); J12.82 Pneumonia due to coronavirus disease 2019
CPT/HCPCS: 36415; 71275; 80053; 83605; 84145; 84484; 85025; 85379; 86140; 96374; 99285; J1100; Q9967